=== PATIENT | female | born 1945 | race Caucasian/White ===

== ENCOUNTER 2018-12-10 13:55 | Outpatient (REF) | payer MEDICARE, OTHER, SELFPAY ==
--- NOTE | 2018-12-10 13:20 | PAPFT_PTH ---
PATIENT: Paz Silva LOC: [facility] U#:[id number] AGE/SX: 73/F ROOM: RE12/10/[address]: Candie Neal : 1945 BED: DIS: 12/10/2018 SPEC #: [id number] RECD: 12/10/18 18:01 STATUS: HOA REKari #: [id number] CASIE: 12/10/18 13:[address]: Candie Neal DEPT: [facility] Cytology RECD BY: Sofiya Young ENTERED: 12/10/18 18:01 SP TYPE: PAPFT OTHR DR: Jovanny Parra Tissues: 1 - CX/ENDOCX FOR PAP SMEARS Procedures: PAP THIN PREP/UVM Screening HPV DNA PROBE Comments: [id number]
== END 2018-12-10 14:15 ==
LOC: LBN 13:55
PROVIDERS: PCP Internal Medicine; Visit Provider Obstetrics & Gynecology Gynecology
DX: Z12.4 Encounter for screening for malignant neoplasm of cervix (principal); Z11.51 Encounter for screening for human papillomavirus (HPV)
CPT/HCPCS: 88142; 87624

== ENCOUNTER 2018-12-10 15:02 | Outpatient (REF) | payer MEDICARE, OTHER, SELFPAY | END 2018-12-10 15:22 | LOC: LBN 15:02 | PROVIDERS: PCP Internal Medicine; Visit Provider Obstetrics & Gynecology | DX: R10.2 Pelvic and perineal pain (principal) | CPT/HCPCS: 87086 ==

== ENCOUNTER 2018-12-22 11:04 | Outpatient (CLI) | payer MEDICARE, OTHER, SELFPAY ==
--- NOTE | 2018-12-22 12:09 | DI.US_ITS ---
SYMPTOMS/DIAGNOSIS: HEMATURIA, FLANK AND RIGHT LOWER QUADRANT PAIN, PELVIC AND PERINEAL PAIN, R10.2, ? KIDNEY STONE PELVIC ULTRASOUND: Transabdominal and transvaginal examination was performed. The patient is status post hysterectomy. The ovaries were not visualized transabdominally or transvaginally. No suspicious adnexal masses or free pelvic fluid is seen. The kidneys were visualized and show no evidence of obstruction. Note is made of a simple cyst on the left kidney measuring 2.1 x 2.3 x 3.2 cm. IMPRESSION: 1. Status post hysterectomy. 2. Nonvisualization of the ovaries during the examination.
--- NOTE | 2018-12-22 13:35 | DI.MAMMO_ITS ---
SYMPTOM/DIAGNOSIS: SCREENING, Z12.31 MAMMOGRAMS: Mammograms were interpreted according to the usual protocol including computer analysis with CAD system, tomosynthesis and C view imaging. Comparison is with the prior examinations. No suspicious masses or microcalcifications are seen. There is no definite evidence of malignancy. IMPRESSION: Negative mammogram. Routine screening is recommended. Category 1, breast density B. MQSA ASSESSMENT OF FINDINGS: Negative. Category 1. Patient will receive a letter notifying them of these results. BI-RADS category B. There are scattered areas of fibroglandular density.
== END 2018-12-22 11:24 ==
PROVIDERS: PCP Internal Medicine; Visit Provider Obstetrics & Gynecology
DX: Z12.31 Encounter for screening mammogram for malignant neoplasm of breast (principal); R10.2 Pelvic and perineal pain; R10.31 Right lower quadrant pain; R31.9 Hematuria, unspecified; N28.1 Cyst of kidney, acquired; Z90.710 Acquired absence of both cervix and uterus
CPT/HCPCS: 77063; 77067; 76830; 76856

== ENCOUNTER → 2019-04-05 09:42 | Outpatient (BNVA) | payer MEDICARE, OTHER, SELFPAY | PROVIDERS: PCP Internal Medicine; Visit Provider Student in an Organized Health Care Education/Training Program | DX: M17.12 Unilateral primary osteoarthritis, left knee (principal) | CPT/HCPCS: 20610; 99203; J1040 ==

== ENCOUNTER 2019-10-14 21:16 | Outpatient (REF) | payer MEDICARE, OTHER, SELFPAY ==
[2019-10-14 21:09] LABS: HCT 43.9 % (36.0-46.0); HGB 14.1 g/dL (12.0-15.5); Mean Corp. HGB Concentration 32.1 g/dL (32.0-36.0); Mean Corpuscular Hemoglobin 30.1 pg (27.0-33.0); Mean Corpuscular Volume 93.8 fL (80-95); Mean Platelet Volume 10.7 fL (8.0-11.0); Platelet Count 374 x1000/uL (130-400); RBC 4.68 m/cumm (4.00-5.20); RBC Distribution Width 14.8 % (11.7-14.6); White Blood Cell Count 6.09 k/cumm (4.4-10.8)
[2019-10-14 21:35] LABS: Hemoglobin A1C 5.5 % (3.8-5.6)
[2019-10-14 21:39] LABS: ALT 22 U/L (14-59); AST 15 U/L (15-37); Alkaline Phosphatase 108 U/L (46-116); Anion Gap 6.5 mmol/L (3-11); BUN 17 mg/dL (7-18); Bilirubin, Total 0.5 mg/dL (0.2-1.0); CO2 31.5 mmol/L (21.0-32.0); CREATININE 0.98 mg/dL (0.55-1.02); Calcium 9.4 mg/dL (8.5-10.1); Calculated LDL 121 mg/dL (<100); Chloride 104 mmol/L (98-107); Cholesterol 193 mg/dL (<200); Estimated GFR 55.79 (mL/min/1.73m2); Glucose 84 mg/dL (74-106); HDL Cholesterol 51 mg/dL (40-60); Potassium 4.1 mmol/L (3.5-5.1); Sodium 142 mmol/L (136-145); TSH 1.25 uIU/mL (0.36-3.74); Total Protein 7.1 g/dL (6.4-8.2); Triglyceride 107 mg/dL (<150)
== END 2019-10-14 21:36 ==
LOC: LBN 21:16
PROVIDERS: PCP Nurse Practitioner Family; Visit Provider Nurse Practitioner
DX: E78.5 Hyperlipidemia, unspecified (principal); E66.9 Obesity, unspecified; R79.89 Other specified abnormal findings of blood chemistry
CPT/HCPCS: 80053; 80061; 85027; 83036; 84439; 84443

== ENCOUNTER 2019-10-15 09:14 | Outpatient (CLI) | payer MEDICARE, OTHER, SELFPAY ==
--- NOTE | 2019-11-04 11:43 | W.ZIOMONITOR ---
Date of service: 11/04/19 Time of Service: 11:43 ZIO Patch Certified [employer] Engineer Note: This is a 2-week ZIO patch ordered for the indication of atrial fibrillation. The patient wore the patch for a total of 8 days. ?Patient was in normal sinus rhythm for the entirety of the recording with a heart rate ranging from 47 to 194 bpm. Average heart rate was 89 bpm. ?There were no episodes of ventricular tachycardia no pauses grade 3 seconds no evidence of high degree heart block. ?There were rare isolated (less than 1%) ventricular ectopic beats. ?Patient triggered events were associated with atrial fibrillation and ventricular ectopy.
--- NOTE | 2019-11-08 08:58 | W.HOLTRPT ---
Date of service: 11/08/19 Time of Service: 08:58 Holter Monitor Report Holter Monitor Note: Note: This is a 2-week ZIO patch ordered for the indication of atrial fibrillation. The patient wore the patch for a total of 8 days. ?Patient was in atrial fibrillation for the entirety of the recording with a heart rate ranging from 47 to 194 bpm. Average heart rate was 89 bpm. ?There were no episodes of ventricular tachycardia no pauses grade 3 seconds no evidence of high degree heart block. ?There were rare isolated (less than 1%) ventricular ectopic beats. ?Patient triggered events were associated with atrial fibrillation and ventricular ectopy.
--- NOTE | 2019-11-08 09:04 | ZIOP_ITS ---
Date of service: 11/08/19 Time of Service: 09:04 ZIO Patch [employer] Med[employer] Commissioner Note: Holter Monitor Note: Note: This is a 2-week ZIO patch ordered for the indication of atrial fibrillation. The patient wore the patch for a total of 8 days. ?Patient was in atrial fibrillation for the entirety of the recording with a heart rate ranging from 47 to 194 bpm. Average heart rate was 89 bpm. ?There were no episodes of ventricular tachycardia no pauses grade 3 seconds no evidence of high degree heart block. ?There were rare isolated (less than 1%) ventricular ectopic beats. ?Patient triggered events were associated with atrial fibrillation and ventricular ectopy.
== END 2019-10-15 09:34 ==
PROVIDERS: PCP Nurse Practitioner Family; Visit Provider Nurse Practitioner Family
DX: I48.91 Unspecified atrial fibrillation (principal)
CPT/HCPCS: 0296T

== ENCOUNTER 2019-11-08 08:00 | Outpatient (CLI) | payer MEDICARE, OTHER, SELFPAY | END 2019-11-08 08:20 | PROVIDERS: PCP Nurse Practitioner Family; Visit Provider Internal Medicine Cardiovascular Disease | DX: I48.91 Unspecified atrial fibrillation (principal); I49.3 Ventricular premature depolarization | CPT/HCPCS: 0298T ==

== ENCOUNTER 2019-12-08 07:22 | Outpatient (CLI) | payer MEDICARE, OTHER, SELFPAY ==
--- NOTE | 2019-12-08 12:30 | DI.US_ITS ---
APPROVED REPORT EXAM: Comprehensive 2D, Doppler, and color-flow Echocardiogram Patient Location: Out-Patient Manager Book: Janeth Aragon RDCS (AE) Indications: New onset A Fib Other Information Study Quality: Adequate Conclusion Normal left ventricular wall thickness and chamber size. Estimated ejection fraction is 45 to 50%. There is mild global hypokinesis The left atrium is moderately dilated. The right atrium is mildly dilated Normal right ventricular size and systolic function The aortic valve is mildly sclerotic without regurgitation or stenosis The mitral annulus is calcified. There is moderate mitral regurgitation There is mild to moderate tricuspid regurgitation with estimated right ventricular systolic pressure of 25 mmHg The pulmonic and tricuspid valves are structurally normal. There is mild pulmonic regurgitation Wall motion Left Ventricle The left ventricle is normal size. Left ventricular systolic function is mildly decreased. There is n ormal left ventricular wall thickness. There is global hypokinesis of the left ventricle. There is no ventricular septal defect visualized. LVEF is 45-50%. Right Ventricle The right ventricle is normal size. The right ventricular systolic function is normal. The RVSP is 24 .4mmHg. Atria Left atrium is moderately dilated. Right atrium is mildly dilated. The interatrial septum is intact w ith no evidence for an atrial septal defect. Aortic Valve Aortic valve is trileaflet. Mildly sclerotic There is no aortic valvular stenosis. No aortic regurgit ation is present. Mitral Valve Mild mitral annular calcification. No evidence of mitral valve stenosis. Moderate mitral regurgitatio n. Tricuspid Valve The tricuspid valve is normal in structure. There is no tricuspid valve stenosis. Mild tricuspid regu rgitation. Pulmonic Valve The pulmonary valve is normal in structure. There is no pulmonic valvular stenosis. Mild pulmonic reg urgitation. Great Vessels The aortic root is normal in size. The ascending aorta is normal in size. Aortic arch is normal in ca liber. IVC is normal in size and collapses >50% with inspiration. Pericardium There is no pericardial effusion. 2D Dimensions IVSD d PLAX 0.91 cm F: 0.6-1.0 LV Vol A2C d MOD 79.9 mL LVPW d PLAX 0.96 cm F: 0.6 - 1.0 LV Vol A4C d MOD 97.9 mL LVID d PLAX 5.05 cm F: 3.8 - 5.2 LA vol/ BSA A2C s A-L 42.9 mL/m2 LVDs 4.05 cm F: 2.2 - 3.5 LA vol/ BSA A4C s A-L 32.4 mL/m2 Ao Root d 2.48 cm F: 2.7 - 3.3 LA Vol/ BSA Biplane s A-L 37.8 mL/m2 RA Area A4C 19.13 cm2 LA Area A4C s MOD 18.62 cm2 RA Vol/ BSA A4C s A-L 31.0 mL/m2 LA Area A2C s MOD 21.68 cm2 Ao Asc Diam d 2.94 cm F: 2.3 - 3.1 LV EF A4C MOD 35.4 % LV EF Teichholz 39.4 % LV EF A2C MOD 35.1 % LVEF (George's) 32.30 % F: 54 - 74 LV EF Biplane MOD 32.3 % LV Volume 69.57 mL F: 46 - 106 SV 28.60 mL LV Volume Index 39.75 mL/m2 F: 29 - 61 SV Index 16.34 mL/m2 LV Vol Biplane MOD 88.5 mL FS 19.20 % M-Mode TAPSE 1.77 cm (M/F) >1.7 LV Diastology MV E' medial 0.081 (>0.07 m/s) MV E Vmax 1.05 (0.4-1.3 m/s) LV E/e MED 12.95 (<14) MV E' lateral 0.110 (>0.1 m/s) LV E/e LAT 9.50 (<14) MV E/E' medial 12.95 MV E/E' lateral 9.51 Aortic Valve LVOT Area 2.87 cm2 AoV Area Vmax 2.22 cm2 LVOT Vmax 1.06 m/s AoV Area/ BSA (Vmax) 1.27 cm2/m2 LVOT Mean Shawn. 0.80 m/s JASON Mean Shawn. 2.20 cm2 LVOT Peak Grad 4.5 mmHg JASON Mean Shawn. Index 1.26 cm2/m2 LVOT Mean Grad 2.7 mmHg LVOT VTI 0.244 m LVOT Diam s 1.90 cm AoV Vmax 1.37 m/s Velocity Ratio 0.77 AoV Mean Shawn. 1.04 m/s AoV Peak Grad 7.5 mmHg LVOT SV 70.22 mL AoV Mean Grad 4.6 mmHg AoV VTI 0.310 m AoV Area VTI 2.27 cm2 AoV Area/ BSA (VTI) 1.29 cm/m2 Mitral Valve MV DT 238 (160-240 msec) MR Vmax 4.77 m/s MV PHT 69 msec MR VTI 1.719 m MV Area PHT 3.19 cm2 MR Peak Grad 90.9 mmHg MV VTI 0.255 m MR Mean Grad 63.3 mmHg MV Area VTI 2.76 (4.0-6.0 cm2) MR PISA Radius 0.54 cm MR EROA 0.14 cm2 MR Aliasing Velocity 0.35 m/s MR PISA 1.86 cm2 Pulmonary Valve PV Vmax 0.86 (0.5-1.5 m/s) RVOT Peak Gr. 1.46 mmHg PV Peak Grad 2.9 mmHg RVOT Mean Gr. 1.00 mmHg PV Mean Grad 2.3 mmHg RVOT VTI 0.145 m PV VTI 0.220 m RVOT Vmax 0.61 m/s Tricuspid Valve TR Peak Grad 21.4 mmHg TR Vmax 2.31 m/s RA Pressure 3.00 mmHg RVSP (TR) 24.4 mmHg
== END 2019-12-08 07:42 ==
PROVIDERS: PCP Nurse Practitioner Family; Visit Provider Nurse Practitioner Family
DX: I08.1 Rheumatic disorders of both mitral and tricuspid valves (principal); I48.91 Unspecified atrial fibrillation
CPT/HCPCS: 93306

== ENCOUNTER → 2019-12-16 12:56 | Outpatient (BNVA) | payer MEDICARE, OTHER, SELFPAY | PROVIDERS: PCP Nurse Practitioner Family; Referring Provider Nurse Practitioner Family; Visit Provider Internal Medicine Cardiovascular Disease | DX: I48.91 Unspecified atrial fibrillation (principal); F03.90 Unspecified dementia, unspecified severity, without behavioral disturbance, psychotic disturbance, mood disturbance, and anxiety; I34.0 Nonrheumatic mitral (valve) insufficiency; G47.30 Sleep apnea, unspecified | CPT/HCPCS: 99204 ==

== ENCOUNTER → 2020-01-24 12:32 | Outpatient (BNVA) | payer MEDICARE, OTHER, SELFPAY | PROVIDERS: PCP Nurse Practitioner Family; Referring Provider Nurse Practitioner Family; Visit Provider Nurse Practitioner Adult Health | DX: F03.90 Unspecified dementia, unspecified severity, without behavioral disturbance, psychotic disturbance, mood disturbance, and anxiety (principal); I10 Essential (primary) hypertension | CPT/HCPCS: 99204; 99215 ==

== ENCOUNTER 2020-01-25 18:06 | Emergency (ER) | payer MEDICARE, OTHER, SELFPAY ==
--- NOTE | 2020-01-25 18:28 | W.ED.GENAD ---
Discharge Plan Disposition Patient Disposition: HOME Condition: Good Discharge Details Chief Complaint: FlankPain Clinical Impression: UTI (urinary tract infection) Primary Care Provider: Jeanne Chan ED Provider: Sharon Vee Home Meds and New Rx's Prescriptions: New sulfamethoxazole-trimethoprim [Bactrim DS] 800-160 mg tablet 1 tab PO BID Qty: 4 RF: 0 Continued potassium chloride 10 mEq tablet extended release 10 meq PO DAILY RF: 0 rivaroxaban 20 mg tablet 20 mg PO QPM Qty: 90 RF: 4 furosemide 20 mg tablet 20 mg PO DAILY Qty: 90 RF: 3 Discharge Instructions Instructions: Sulfamethoxazole/Trimethoprim (By mouth), Urinary Tract Infection in Women (ED) Additional Instructions: Encourage water intake. May use Tylenol as needed for discomfort. Please take antibiotics for urinary tract infection as prescribed. Even if symptoms improve, please take the entire course. I would like you to follow-up with your primary care, please call tomorrow to make follow-up appointment. If you develop back pain, fevers or other new/worsening symptoms please seek care urgently once again. Referrals: Jeanne Chan, YEIMI [Primary Care Provider] - Discharge Data Discharge Date/Time-TO BE ENTERED AT DEPARTURE: 01/25/20 21:10 Medical Decision Making Patient is a pleasant 74-year-old female with history of dementia presents today with chief complaint of left flank pain. Exam actually reveals that this reported flank pain seems to be more in the left lower abdomen. She does report however that this can wrap around to the side. She does not have any CVA tenderness. She is her home care provider reports increased weakness and urgency although patient denies any dysuria. Does not note any hematuria. No vaginal discharge. Denies any change in her bowel habits. No change in her appetite. Denies any fevers or chills. No recent travel. No known sick contacts. Patient has a history of dementia. joint machine operator is present. She reports the patient's primary concern over the past few days has been discomfort with urination and increased frequency. This is slightly different with the patient was initially talking with the left-sided abdominal pain. I do feel that CT would be appropriate for evaluation potential diverticulitis given location of pain. Alternatively, the patient may have UTI. She has no CVA tenderness, I do not see evidence to suggest pyelonephritis. She does not appear to be systemically ill. Labs reviewed, no leukocytosis, GFR WNL. Lipase WNL. UA significant for small leukocyte esterase, moderate epithelial cells, few bacteria. FINDINGS: Liver: Normal. No mass. Gallbladder and bile ducts: Gallbladder contracted or prior cholecystectomy. Minimal intra and extrahepatic biliary ductal dilatation. Pancreas: Normal. No ductal dilation. Spleen: Normal. No splenomegaly. Adrenals: Normal. No mass. Kidneys and ureters: Simple cysts left kidney, largest measuring 2.7 cm. Too small to characterize hypoenhancing lesion lower pole right kidney. No hydronephrosis. Stomach and bowel: Minimal gastric distension. No colonic dilatation. Dilatation of proximal duodenum. Duodenum more distally compressed passing between IVC and superior mesenteric artery. Fat stranding about proximal duodenum. Scattered colonic diverticula. Appendix: Normal appendix. Intraperitoneal space: No free intraperitoneal gas. No ascites Vasculature: There are coronary artery calcifications. Left retroaortic renal vein. Lymph nodes: No adenopathy. Bladder: Unremarkable as visualized. Reproductive: Prior hysterectomy. Bones/joints: Mild anterior subluxation of L5 with respect S1. No acute fracture. Soft tissues: Unremarkable. IMPRESSION: 1. Gastric and proximal duodenal dilatation at least in part due to compression of more distal duodenum between IVC in superior mesenteric artery. 2. Duodenitis. 3. Intra-and extrahepatic biliary ductal dilatation, most likely due to prior cholecystectomy and/or instrumentation of the biliary tract. Other etiologies not excluded. Correlation with serum bilirubin warranted. 4. Colonic diverticula. 5. Coronary artery disease. Discussed these findigns with the ptaient and her home help aide. Reexamine the patient's abdomen she does not have any discomfort over the area in question of the CT. She also has not been having any change in her bowel habits suggest infectious diarrhea. However, given the patient's home care providers reported increased frequency and urgency along with the abdominal discomfort, and concern that she has a UTI. She did have some mild leukocyte esterase and few bacteria in her urine. Plan to treat with Bactrim. Patient does have allergy to penicillins and her kidney function is within normal limits, I do feel that she will likely tolerate this well. She was given strict return precautions. Advise follow-up with primary care. All other questions and concerns were addressed and they are in agreement this plan. HPI General Mode of arrival: ambulatory. Date/Time Provider Initiated Documentation: 01/25/20 18:28. Limitations to Documentation: altered mental status (hx of dementia). Information obtained by: patient, family (home help aide) and RN notes reviewed. HPI Narrative: Patient is a pleasant 74-year-old female past medical history of dementia, presenting today, brought in by her home care provider, with chief complaint of left flank pain. States his left flank pain began approximately 3 days ago. Denies any improving or worsening factors. She denies any trauma. Is endorsing left-sided abdominal pain as well. No nausea vomiting. No change in appetite. Home care provider reports that the flank pain was not primarily what brought her in but rather dysuria. States the patient has had increased frequency. Denies any fevers or chills. No change in bowel habits. Related Data Home Medications Medication Instructions Recorded Confirmed rivaroxaban 20 mg tablet 20 mg PO QPM #90 tab 10/19/19 01/24/20 furosemide 20 mg tablet 20 mg PO DAILY #90 tab 12/16/19 01/24/20 potassium chloride 10 mEq 10 meq PO DAILY 01/24/20 01/24/20 tablet,extended release sulfamethoxazole-trimethoprim 1 tab PO BID #4 tab 01/25/20 [Bactrim DS] Previous Rx's Medication Instructions Recorded rivaroxaban 20 mg tablet 20 mg PO QPM #90 tab 10/19/19 furosemide 20 mg tablet 20 mg PO DAILY #90 tab 12/16/19 sulfamethoxazole-trimethoprim 1 tab PO BID #4 tab 01/25/20 [Bactrim DS] Allergies Allergy/AdvReac Type Severity Reaction Status Date / Time Penicillins Allergy Severe Hives Verified 01/24/20 12:49 diphtheria,pertussis AdvReac Other (See Verified 01/24/20 12:49 (acellular),te Comment) [From [employer] Tdap] Review of Systems Narrative: Patient did seem quite clear on many of her symptoms although her home care provider was able to augment when needed. I do feel that history was thorough and complete despite the patient's history of dementia Constitutional Constitutional: Reports as per HPI, Denies chills, Denies fatigue, Denies fever(s) and Denies headache(s) ENT Ears, Nose, Mouth, and Throat: Denies headache(s) Cardiovascular Cardiovascular: Reports as per HPI, Denies chest pain and Denies dyspnea Respiratory Respiratory: Reports as per HPI, Denies cough and Denies dyspnea Gastrointestinal Gastrointestinal: Reports as per HPI Genitourinary Genitourinary: Reports as per HPI Musculoskeletal Musculoskeletal: Reports as per HPI, Reports back pain, Denies muscle cramps, Denies muscle weakness and Denies radiating pain into limb Integumentary/Breasts Skin/Breast: Reports as per HPI and Denies rash Neurologic Neurologic: Reports as per HPI and Denies headache(s) Endocrine Endocrine: Denies fatigue [facility] Medical History Atrial fibrillation (Chronic) Dementia (Suspected) Essential hypertension (Resolved) GERD (gastroesophageal reflux disease) (Chronic) Helicobacter pylori gastritis (Resolved) Hyperlipidemia (Chronic) Left knee DJD (Chronic) Injection: 04/05/2019 Obstructive sleep apnea (Chronic) PSG 02/18/16 Tubular adenoma of colon (Resolved) Noted on colonoscopy in 2005, repeat in 2010 normal Surgical History H/O medial meniscus repair of right knee (Acute 03/31/12) H/O total hysterectomy (Acute) For heavy menstruation History of carpal tunnel surgery of right wrist (Acute) History of esophagogastroduodenoscopy (EGD) (Chronic) S/P arthroscopy of left shoulder (Acute) S/P cholecystectomy (Acute) S/P colonoscopy (Acute 10/29/10) S/P excision of lipoma (Acute 07/15/07) Left chest S/P tonsillectomy (Acute) Family History Mother , age 84 of unknown cause Alzheimer's disease Father , age 76 of cirrhosis Alcohol abuse Heart disease Cirrhosis of liver Sister Depression Bipolar disorder Brother Alcohol abuse Depression Son Alcohol abuse Depression Daughter Alcohol abuse Hypertension Substance abuse Depression Bipolar disorder Maternal Grandfather , age 88 Heart disease Maternal Grandmother , age 80 No problems noted. Paternal Grandfather , at 80 Hypertension Paternal Grandmother , age 75 Depression Heart disease Social History Smoking/Tobacco Use Status: Former Tobacco Use Quit Date: 05/26/94 Tobacco: How many years used: 15 Second Hand Exposure: No Alcohol Intake: never Drug use: Never Substance use type: does not use Caregiver/Support person: No Household members: none Housing: house Number of Children: 2 Communication Needs: Corrective Lenses Do you need help understanding health information?: Often Pets and animals: Yes Pets and animals: cat(s) and dog(s) Sexually active: No Current gender identity: female What is your relationship status?: How often do you talk on the phone with friends or family?: three or more times per week How often do you get together with friends or relatives?: three or more times per week How often do you attend advent or latter-day services?: decline to answer Do you belong to any clubs or organized social groups?: no Panel score (0-1 are the most socially isolated patients): 1 What type of physical activity do you participate in: walking Duration: 30-45 minutes/day Frequency: 5-6 times per week Suri/Cheondoism: Orthodoxy Special suri needs: No Seatbelt use: always Do you feel safe at home: Yes Do you feel safe in your relationship?: Yes Female Reproductive History Menstrual Menopause type: surgical History History 2 Para 2 Hx # Term Pregnancies 2 Multiple births Hx # Pregnancies Ectopic pregnancies AB induced Hx Number of Living Children 2 AB spontaneous Exam Const General: cooperative, healthy appearing, comfortable, no acute distress and well developed Nutritional Appearance: average body habitus and well nourished Orientation: alert and awake HENMT Head: normal to inspection Mouth: moist mucous membranes Resp Effort & Inspection: normal respiratory effort, able to speak in complete sentences and no respiratory distress Auscultation: clear to auscultation bilaterally, no rales, no rhonchi and no wheezes Cardio Rate: regular rate Rhythm: regular rhythm Heart Sounds: S1 normal and S2 normal GI Inspection: normal to inspection, no edema and non-distended Palpation: soft, no hepatosplenomegaly, not firm, no guarding, no hernias, no masses, no pulsatile masses, not rigid and tender in the LLQ; not at McBurney's point, Corbett's sign negative, obturator sign negative, psoas sign negative and with no rebound tenderness Percussion: normal to percussion Auscultation: normal bowel sounds Back/Spine/Pelvis Back: no CVA tenderness Skin General skin exam: no rashes or lesions noted Trauma: no lacerations or abrasions Neuro General: patient alert and patient awake Cognition: normal cognition Speech: speech normal Gait: normal gait Psych Appearance: grossly normal and well kempt Mental Status: mental status grossly normal Speech and Movement: speech and movement normal
[2020-01-25 18:37] VITALS: BP 120/50; PULSE 85; RESP 20; TEMP 36.5; O2SAT 98
--- NOTE | 2020-01-25 18:45 | DI.CT_ITS ---
EXAM: CT ABDOMEN PELVIS W CLINICAL HISTORY: LLQ pain TECHNIQUE: Imaging Protocol: Axial computed tomography images with coronal and sagittal reformatted images were created and reviewed CONTRAST MATERIAL: Intravenous: Omnipaque 350 Contrast volume:100 mL Oral: No COMPARISON: No exams were available for comparison FINDINGS: ABDOMEN: Lung Bases: Moderate coronary artery calcification. Liver: Normal density. No measurable mass. 19.1 cm in length. Portal, Superior Mesenteric, and Splenic Veins: Unremarkable. Gallbladder and Biliary Tract: Gallbladder not visualized. Dilatation of the bile ducts likely secon arjun to the post cholecystectomy state.. Pancreas: Normal density, no abnormal calcifications or inflammatory process. Spleen: Normal. Calcified granulomas. Adrenals: No masses seen. Kidneys: Normal size, contour and axis. No radiodense stones or obstructive uropathy. Bilateral renal cysts. Abdominal Aorta: Abdominal portion non-dilated. Atherosclerosis. IVC: Note is made of a retroaortic left renal vein. Bowel: No obstruction. Mild thickening of the wall of the proximal small bowel suspicious for an inf ectious or inflammatory enteritis. Distended stomach and proximal duodenum.. Appendix is unremarkab le. Colonic diverticulosis but no evidence of acute diverticulitis. Peritoneal Cavity: No ascites, collection or mesenteric inflammatory response. Lymph Nodes: Within normal limits. Bones: Degenerative changes in the spine. Soft Tissues: Unremarkable. PELVIS: Bladder: Symmetric distention, no gross wall thickening. Reproductive Organs: Status post hysterectomy. Lymph Nodes: Within normal limits. Bones: Degenerative changes seen in the spine. IMPRESSION: 1. Mild thickening of the wall of the proximal small bowel suspicious for an infectious or inflammato ry enteritis. 2. Distended stomach and proximal duodenum which may be due to compression between the superior mesen teric vessels in the IVC. 3. Intra and extrahepatic biliary ductal dilatation likely secondary to prior cholecystectomy. RADIATION DOSE DELIVERED: 1,096.69mGy.cm Total DLP DATA REPOSITORY: All CT scans at this facility are submitted to the National Radiology Data Registry (NRDR) Dose Index Registry (DIR) with the [employer] (ACR). RADIATION OPTIMIZATION: All CT scans at this facility use at least one of these dose optimization te chniques: automated exposure control; mA and/or kV adjustment per patient size (includes targeted exa ms where dose is matched to clinical indication); or iterative reconstruction.
[2020-01-25 18:48] LABS: Bilirubin Negative (Negative); Blood Negative (Negative); Clarity Clear (Clear); Glucose Negative (Negative); Ketones Negative (Negative); Leukocyte Esterase Small (Negative); Nitrite Negative (Negative); Specific Gravity 1.025 (1.005-1.025); Urobilinogen 0.2 EU/dL (Up TO 0.2); pH 6.5 (5-8)
[2020-01-25 19:02] LABS: Bacteria Few HPF (Negative); C & S Indicated? Yes; Crystals Negative HPF (Negative); Epithelial Cells Moderate HPF (Negative); Mucus Negative (Negative); RBC 0-2 HPF (0-2)
[2020-01-25 19:17] LABS: Abs Immature Grans 0.02 10^3/uL (0.0-0.06); Absolute Basophil Count 0.06 10^3/uL (0.0-0.2); Absolute Eosinophil Count 0.18 10^3/uL (0.0-0.7); Absolute Lymphocyte Count 2.38 10^3/uL (1.2-3.4); Absolute Neutrophil Count 3.64 10^3/uL (1.2-6.7); Basophils % 0.9; Eosinophils % 2.7; HCT 42.6 % (36.0-46.0); HGB 13.6 g/dL (11.2-15.7); Immature Grans % 0.3; Lymphocytes % 35.1; MCH 30.2 pg (27.0-33.0); MCHC 31.9 % (32.0-36.0); MCV 94.5 fL (80-95); MPV 10.2 fL (8.0-11.0); Monocytes % 7.4; Neutrophils % 53.6; Nucleated RBC 0 %; Platelet Count 322 10^3/uL (130-400); RBC 4.51 10^6/uL (3.93-5.22); RDW 14.1 % (11.7-14.6); RDW-SD 49.1 fL; WBC 6.78 10^3/uL (4.4-10.8)
[2020-01-25] MEDS: Lactated Ringers 1,000 ML 500 ML IV (19:17)
[2020-01-25] MEDS: ACETAMINOPHEN 1,000 MG/100 ML BTL 400 MG IVPB (19:20)
[2020-01-25 19:30] VITALS: BP 110/65; PULSE 83; RESP 16; O2SAT 100
[2020-01-25 19:31] LABS: ALT 17 U/L (14-59); AST 14 U/L (15-37); Albumin 3.4 g/dL (3.4-5.0); Alkaline Phosphatase 82 U/L (46-116); BUN 18 mg/dL (7-18); Bilirubin, Total 0.3 mg/dL (0.2-1.0); CREATININE 0.85 mg/dL (0.55-1.02); Calcium 8.6 mg/dL (8.5-10.1); Chloride 109 mmol/L (98-107); Glucose 95 mg/dL (74-106); Lipase 147 U/L (73-393); Potassium 3.5 mmol/L (3.5-5.1); Sodium 146 mmol/L (136-145); Total Protein 6.4 g/dL (6.4-8.2)
[2020-01-25] MEDS: Omnipaque 350 MG/ML 100 ML BTL IJ (19:41)
[2020-01-25] MEDS: Normal Saline - Diluent 50 ML VIAL IV (19:43)
[2020-01-25] MEDS: Normal Saline Flush 10 ML SYR IVP (19:46)
[2020-01-25 20:00] VITALS: BP 113/75; PULSE 81; RESP 16; O2SAT 100
--- NOTE | 2020-01-25 20:17 | DI.VRAD_ITS ---
PROCEDURE INFORMATION: Exam: CT Abdomen And Pelvis With Contrast Exam date and time: 01/25/2020 6:53 PM Age: 74 years old Clinical indication: Abdominal pain; Other: Llq pain; Prior surgery; Surgery date: 6+ months; Surgery type: Hysterectomy TECHNIQUE: Imaging protocol: Computed tomography of the abdomen and pelvis with intravenous contrast. Radiation optimization: All CT scans at this facility use at least one of these dose optimization techniques: automated exposure control; mA and/or kV adjustment per patient size (includes targeted exams where dose is matched to clinical indication); or iterative reconstruction. Contrast material: OMNIPAQUE 350; Contrast volume: 100 ml; Contrast route: INTRAVENOUS (IV); COMPARISON: US PELVIS TRANSVAGINAL 12/22/2018 12:29 PM FINDINGS: Liver: Normal. No mass. Gallbladder and bile ducts: Gallbladder contracted or prior cholecystectomy. Minimal intra and extrahepatic biliary ductal dilatation. Pancreas: Normal. No ductal dilation. Spleen: Normal. No splenomegaly. Adrenals: Normal. No mass. Kidneys and ureters: Simple cysts left kidney, largest measuring 2.7 cm. Too small to characterize hypoenhancing lesion lower pole right kidney. No hydronephrosis. Stomach and bowel: Minimal gastric distension. No colonic dilatation. Dilatation of proximal duodenum. Duodenum more distally compressed passing between IVC and superior mesenteric artery. Fat stranding about proximal duodenum. Scattered colonic diverticula. Appendix: Normal appendix. Intraperitoneal space: No free intraperitoneal gas. No ascites Vasculature: There are coronary artery calcifications. Left retroaortic renal vein. Lymph nodes: No adenopathy. Bladder: Unremarkable as visualized. Reproductive: Prior hysterectomy. Bones/joints: Mild anterior subluxation of L5 with respect S1. No acute fracture. Soft tissues: Unremarkable. IMPRESSION: 1. Gastric and proximal duodenal dilatation at least in part due to compression of more distal duodenum between IVC in superior mesenteric artery. 2. Duodenitis. 3. Intra-and extrahepatic biliary ductal dilatation, most likely due to prior cholecystectomy and/or instrumentation of the biliary tract. Other etiologies not excluded. Correlation with serum bilirubin warranted. 4. Colonic diverticula. 5. Coronary artery disease. Dictated and Authenticated by: Kieran Carpenter MD. Ordering:LUBA Herrera MD
[2020-01-25 21:07] VITALS: BP 114/63; PULSE 83; RESP 16; O2SAT 100
[2020-01-25] MEDS: Sulfameth/Trimeth DS TAB 2 TAB PO (21:07)
== END 2020-01-25 21:10 | disposition home or self-care (01) ==
PROVIDERS: Nurse Practitioner Family; Emergency Provider Physician Assistant; PCP Nurse Practitioner Family
DX: N39.0 Urinary tract infection, site not specified (principal); R10.32 Left lower quadrant pain; F03.90 Unspecified dementia, unspecified severity, without behavioral disturbance, psychotic disturbance, mood disturbance, and anxiety; I10 Essential (primary) hypertension
CPT/HCPCS: 36415; 80053; 83690; 96361; 96374; 99285; 74177; 81003; 81015; 85025; 87086; 99284; J0131; J3490

== ENCOUNTER 2020-02-14 17:52 | Emergency (ER) | payer MEDICARE, OTHER, SELFPAY ==
[2020-02-14 18:00] VITALS: BP 136/91; PULSE 89; RESP 18; TEMP 36.6; O2SAT 96
[2020-02-14 18:35] LABS: Abs Immature Grans 0.02 10^3/uL (0.0-0.06); Absolute Basophil Count 0.05 10^3/uL (0.0-0.2); Absolute Eosinophil Count 0.23 10^3/uL (0.0-0.7); Absolute Lymphocyte Count 1.69 10^3/uL (1.2-3.4); Absolute Monocyte Count 0.52 10^3/uL (0.1-0.8); Absolute Neutrophil Count 4.27 10^3/uL (1.2-6.7); Basophils % 0.7; Eosinophils % 3.4; HCT 42.2 % (36.0-46.0); HGB 13.6 g/dL (11.2-15.7); Immature Grans % 0.3; Lymphocytes % 24.9; MCH 30.1 pg (27.0-33.0); MCHC 32.2 % (32.0-36.0); MCV 93.4 fL (80-95); Monocytes % 7.7; Nucleated RBC 0 %; Platelet Count 323 10^3/uL (130-400); RBC 4.52 10^6/uL (3.93-5.22); RDW-SD 47.9 fL; WBC 6.78 10^3/uL (4.4-10.8)
[2020-02-14 18:41] LABS: Anion Gap 8.5 mmol/L (3-11); BUN 21 mg/dL (7-18); CO2 25.5 mmol/L (21.0-32.0); CREATININE 0.82 mg/dL (0.55-1.02); Calcium 8.5 mg/dL (8.5-10.1); Chloride 108 mmol/L (98-107); Glucose 120 mg/dL (74-106); Potassium 3.5 mmol/L (3.5-5.1); Sodium 142 mmol/L (136-145)
--- NOTE | 2020-02-14 18:41 | ED.GENADUL_ITS ---
Discharge Plan Disposition Patient Disposition: HOME Condition: Good Discharge Details Clinical Impression: Obstipation Primary Care Provider: Jeanne Chan ED Provider: Asya Rock Home Meds and New Rx's Prescriptions: Continued potassium chloride 10 mEq tablet extended release 10 meq PO DAILY RF: 0 rivaroxaban 20 mg tablet 20 mg PO QPM Qty: 90 RF: 4 furosemide 20 mg tablet 20 mg PO DAILY Qty: 90 RF: 3 Discharge Instructions Instructions: Constipation (ED) Additional Instructions: Drink at least 6 to 8 glasses of water daily to stay well-hydrated Can use [id number] stool softeners and laxatives if needed for constipation Continue use Tylenol and/or ibuprofen See your primary care provider for further evaluation Referrals: Jeanne Chan, [employer] [Primary Care Provider] - Medical Decision Making Patient presents with a recurrence of her left-sided abdominal pain with radiation into her groin after completing a course of Bactrim for urinary tract infection a few weeks ago. She denies fever. Will obtain basic metabolic panel CBC and UTI. Differentials include recurrent UTI renal colic, muscle strain,. Urine shows no evidence of infection there is no blood. Her basic metabolic panel and CBC are unremarkable. Will repeat CT as previous CT did show some nonspecific inflammatory changes. This has resolved on today's repeat exam. On discharge patient complains of left thigh pain which she says she has had for 2 weeks. Her pain is controlled with oral Tylenol. Her last dose was at 4 PM she is requesting a dose at discharge she is a administered thousand milligrams of p.o. Tylenol and is able to easily ambulate out of the department at discharge Medical Records Medical records reviewed: Yes I reviewed the patient's medical records. Lab Data Lab results reviewed: Yes I reviewed the patient's lab results. Lab results narrative: Laboratory Results - last 24 hr 02/14/20 02/14/20 02/14/20 18:27 18:27 18:35 WBC 6.78 RBC 4.52 Hgb 13.6 Hct 42.2 MCV 93.4 MCH 30.1 MCHC 32.2 RDW 14.0 Plt Count 323 MPV 10.0 Immature Gran % 0.3 Neutrophils % 63.0 Lymphocytes % 24.9 Monocytes % 7.7 Eosinophils % 3.4 Basophils % 0.7 Nucleated RBC % 0 Absolute Neutrophils 4.27 Absolute Lymphocytes 1.69 Absolute Monocytes 0.52 Absolute Eosinophils 0.23 Absolute Basophils 0.05 Sodium 142 Potassium 3.5 Chloride 108 H Carbon Dioxide 25.5 Anion Gap 8.5 BUN 21 H Creatinine 0.82 Estimated GFR/1.73 m2 >= 60.00 Glucose 120 H Calcium 8.5 Urine Color Yellow Urine Clarity Clear Urine pH 5.5 Ur Specific [place] >= 1.030 H Urine Protein Negative Urine Ketones Trace H Urine Blood Negative Urine Nitrite Negative Urine Bilirubin Negative Urine Urobilinogen 0.2 Ur Leukocyte Esterase Negative Urine Glucose Negative HPI General Date/Time Provider Initiated Documentation: 02/14/20 17:55 . Information obtained by: patient, family (janitor caretaker) and old records reviewed . HPI Narrative: Patient presents with caregiver with complaints of left-sided abdominal/groin pain that wraps around to her flank area. She states she had similar symptoms a few weeks back and was treated for a urinary tract infection she says she completed her course of antibiotics as prescribed but a few days later her symptoms returned. She denies any fevers nausea she is eating and drinking. She denies any loose stools. She denies any dysuria or frequency. Related Data Home Medications Medication Instructions Recorded Confirmed rivaroxaban 20 mg tablet 20 mg PO QPM #90 tab 10/19/19 02/14/20 furosemide 20 mg tablet 20 mg PO DAILY #90 tab 12/16/19 02/14/20 potassium chloride 10 mEq 10 meq PO DAILY 01/24/20 02/14/20 tablet,extended release Previous Rx's Medication Instructions Recorded rivaroxaban 20 mg tablet 20 mg PO QPM #90 tab 10/19/19 furosemide 20 mg tablet 20 mg PO DAILY #90 tab 12/16/19 Allergies Allergy/AdvReac Type Severity Reaction Status Date / Time Penicillins Allergy Severe Hives Verified 02/14/20 18:04 diphtheria,pertussis AdvReac Other (See Verified 02/14/20 18:04 (acellular),te Comment) [From Boostrix Tdap] General Stated Complaint: Urinary LYNDON: 3 Review of Systems Constitutional Constitutional: Denies fever(s) Cardiovascular Cardiovascular: Denies chest pain Respiratory Respiratory: Denies cough Gastrointestinal Gastrointestinal: Reports abdominal pain, Denies melena, Denies change in bowel habits, Denies change in stool character, Denies diarrhea, Denies nausea and Denies vomiting Genitourinary Genitourinary: Denies urinary incontinence and Denies urinary hesitancy Musculoskeletal Musculoskeletal: Denies arthralgias and Denies joint swelling Integumentary/Breasts Skin/Breast: Denies rash [facility] Medical History (Updated 02/14/20 @ 21:56 by Asya Rock NP) Atrial fibrillation Dementia Essential hypertension GERD (gastroesophageal reflux disease) Helicobacter pylori gastritis Hyperlipidemia Left knee DJD Injection: 04/05/2019 Obstructive sleep apnea PSG 02/18/16 Tubular adenoma of colon Noted on colonoscopy in 2005, repeat in 2010 normal Surgical History H/O medial meniscus repair of right knee (03/31/12) H/O total hysterectomy For heavy menstruation History of carpal tunnel surgery of right wrist History of esophagogastroduodenoscopy (EGD) S/P arthroscopy of left shoulder S/P cholecystectomy S/P colonoscopy (10/29/10) S/P excision of lipoma (07/15/07) Left chest S/P tonsillectomy Family History Mother , age 84 of unknown cause Alzheimer's disease Father , age 76 of cirrhosis Alcohol abuse Heart disease Cirrhosis of liver Sister Depression Bipolar disorder Brother Alcohol abuse Depression Son Alcohol abuse Depression Daughter Alcohol abuse Hypertension Substance abuse Depression Bipolar disorder Maternal Grandfather , age 88 Heart disease Maternal Grandmother , age 80 No problems noted. Paternal Grandfather , at 80 Hypertension Paternal Grandmother , age 75 Depression Heart disease Social History Smoking/Tobacco Use Status: Former Tobacco Use Quit Date: 05/26/94 Tobacco: How many years used: 15 Second Hand Exposure: No Alcohol Intake: never Drug use: Never Substance use type: does not use Caregiver/Support person: No Household members: none Housing: house Number of Children: 2 Communication Needs: Corrective Lenses Do you need help understanding health information?: Often Pets and animals: Yes Pets and animals: cat(s) and dog(s) Sexually active: No Current gender identity: female What is your relationship status?: How often do you talk on the phone with friends or family?: three or more times per week How often do you get together with friends or relatives?: three or more times per week How often do you attend episcopalian or alevism services?: decline to answer Do you belong to any clubs or organized social groups?: no Panel score (0-1 are the most socially isolated patients): 1 What type of physical activity do you participate in: walking Duration: 30-45 minutes/day Frequency: 5-6 times per week Suri/Church: [employer] Special suri needs: No Seatbelt use: always Do you feel safe at home: Yes Do you feel safe in your relationship?: Yes Female Reproductive History Menstrual Menopause type: surgical History History 2 Para 2 Hx # Term Pregnancies 2 Multiple births Hx # Pregnancies Ectopic pregnancies AB induced Hx Number of Living Children 2 AB spontaneous Exam Const General: cooperative, healthy appearing, comfortable and no acute distress Nutritional Appearance: overweight Orientation: alert, awake, oriented to person, oriented to place and oriented to time (Able to provide some history but with signs of cognitive impairment caregiv) HENMT Head: normal to inspection, normocephalic and atraumatic Mouth: oral mucosae normal Resp Effort & Inspection: normal respiratory effort Cardio Rate: regular rate Rhythm: regular rhythm GI Inspection: normal to inspection, distended and obesity Palpation: soft, not firm, no guarding, no masses, not rigid and nontender Back/Spine/Pelvis Back: no CVA tenderness Thoracic/Lumbar Spine: thoracic and lumbar spine normal to inspection Skin General skin exam: no rashes or lesions noted Extrem General: normal to inspection, full ROM and pedal edema (trace) bilaterally Course Vital Signs Vital signs: Vital Signs Temperature 36.6 C 02/14/20 18:00 Pulse 89 02/14/20 18:00 Respiratory Rate 18 02/14/20 18:00 Blood Pressure 136/91 H 02/14/20 18:00 Pulse Oximetry 96 02/14/20 18:00 Temperature 36.6 C 02/14/20 18:00 Temperature Source Oral 02/14/20 18:00 Pulse 89 02/14/20 18:00 Respiratory Rate 18 02/14/20 18:00 Respiratory Effort Non-Labored 02/14/20 18:05 Blood Pressure 136/91 H 02/14/20 18:00 Blood Pressure Position Sitting 02/14/20 18:00 Pulse Oximetry 96 02/14/20 18:00 Oxygen Delivery Method Room Air 02/14/20 18:00 Oxygen Flow Rate 0 02/14/20 18:00 Pain Level 2 02/14/20 18:00 Lab/Test Results Lab/Test Results: Laboratory Tests Range/Units 02/14/20 18:27 WBC (4.4-10.8) 10^3/uL 6.78 RBC (3.93-5.22) 10^6/uL 4.52 Hgb (11.2-15.7) g/dL 13.6 Hct (36.0-46.0) % 42.2 MCV (80-95) fL 93.4 MCH (27.0-33.0) pg 30.1 MCHC (32.0-36.0) % 32.2 RDW (11.7-14.6) % 14.0 Plt Count (130-400) 10^3/uL 323 MPV (8.0-11.0) fL 10.0 Immature Gran % 0.3 Neutrophils % 63.0 Lymphocytes % 24.9 Monocytes % 7.7 Eosinophils % 3.4 Basophils % 0.7 Nucleated RBC % % 0 Absolute Neutrophils (1.2-6.7) 10^3/uL 4.27 Absolute Lymphocytes (1.2-3.4) 10^3/uL 1.69 Absolute Monocytes (0.1-0.8) 10^3/uL 0.52 Absolute Eosinophils (0.0-0.7) 10^3/uL 0.23 Absolute Basophils (0.0-0.2) 10^3/uL 0.05
[2020-02-14 18:45] LABS: Bilirubin Negative (Negative); Blood Negative (Negative); Clarity Clear (Clear); Glucose Negative (Negative); Ketones Trace mg/dL (Negative); Leukocyte Esterase Negative (Negative); Nitrite Negative (Negative); Specific Gravity >= 1.030 (1.005-1.025); Urobilinogen 0.2 EU/dL (Up TO 0.2); pH 5.5 (5-8)
--- NOTE | 2020-02-14 19:30 | DI.CT_ITS ---
EXAM: CT ABDOMEN PELVIS W CLINICAL HISTORY: pain, left lower quad TECHNIQUE: Imaging Protocol: Axial computed tomography images with coronal and sagittal reformatted images were created and reviewed CONTRAST MATERIAL: Intravenous: Omnipaque 350 Contrast volume:100 mL Oral: Yes COMPARISON: CT CT ABDOMEN PELVIS W from 01/25/2020 FINDINGS: ABDOMEN: Lung Bases: Normal where visualized. Liver: Normal density. No measurable mass. There is an area of decreased attenuation within the liver adjacent to the falciform ligament. Its appearance and location is suggestive of fatty infiltration . Portal, Superior Mesenteric, and Splenic Veins: Unremarkable. Gallbladder and Biliary Tract: Gallbladder is absent. No biliary ductal dilatation. Pancreas: Normal density, no abnormal calcifications or inflammatory process. Spleen: Normal. Adrenals: Stable nodularity of the left adrenal gland. Right adrenal gland is unremarkable. Kidneys: Normal size, contour and axis. No radiodense stones or obstructive uropathy. Bilateral renal cysts. Note is made of a retroaortic left renal vein. Abdominal Aorta: Abdominal portion non-dilated. Atherosclerosis. Bowel: No obstruction or bowel wall thickening. Appendix is unremarkable. Colonic diverticulosis but no evidence of acute diverticulitis. There is a question of pneumatosis in the cecum. No portal brendan ous air is identified. Peritoneal Cavity: No ascites, collection or mesenteric inflammatory response. Lymph Nodes: Within normal limits. Bones: L5 spondylolysis on the right. No spondylolisthesis. Scattered sclerotic foci are seen in th e bones. Degenerative changes are seen in the spine. Soft Tissues: Unremarkable. PELVIS: Bladder: Symmetric distention, no gross wall thickening. Reproductive Organs: The uterus is not visualized. Lymph Nodes: Within normal limits. Bones: Please see the above discussion. IMPRESSION: 1. Area of decreased attenuation within the liver adjacent to the falciform ligament. Its appearance and location is most suggestive of focal fatty infiltration. MRI may be considered to exclude a mas s. 2. Question of pneumatosis in the cecum. No portal venous air is identified. 3. Several sclerotic foci seen within the bones. These may represent bone islands metastatic disease cannot be excluded. Bone scan may be considered for further evaluation. RADIATION DOSE DELIVERED: 1,046.99mGy.cm Total DLP DATA REPOSITORY: All CT scans at this facility are submitted to the National Radiology Data Registry (NRDR) Dose Index Registry (DIR) with the [employer] [place] [employer] (ACR). RADIATION OPTIMIZATION: All CT scans at this facility use at least one of these dose optimization te chniques: automated exposure control; mA and/or kV adjustment per patient size (includes targeted exa ms where dose is matched to clinical indication); or iterative reconstruction.
[2020-02-14] MEDS: Omnipaque 350 MG/ML 50 ML BTL PO (19:58)
[2020-02-14] MEDS: Breeza Beverage 473 ML BTL PO (20:00)
[2020-02-14] MEDS: Omnipaque 350 MG/ML 100 ML BTL IJ (21:09)
[2020-02-14] MEDS: Normal Saline - Diluent 50 ML VIAL IV (21:23)
[2020-02-14] MEDS: Normal Saline Flush 10 ML SYR IVP (21:24)
--- NOTE | 2020-02-14 21:36 | DI.VRAD_ITS ---
PROCEDURE INFORMATION: Exam: CT Abdomen And Pelvis With Contrast Exam date and time: 02/14/2020 9:16 PM Age: 74 years old Clinical indication: Abdominal pain; Localized; Left lower quadrant (llq); Patient HX: Pain, left lower quadrant TECHNIQUE: Imaging protocol: Computed tomography of the abdomen and pelvis with intravenous contrast. COMPARISON: CT ABDOMEN PELVIS W 01/25/2020 7:43 PM FINDINGS: Liver: Nonspecific lesion in the right hepatic lobe along the falciform ligament measuring 2 cm. Consider MRI to exclude underlying mass versus focal fatty infiltration. Gallbladder and bile ducts: Cholecystectomy. Pancreas: Normal. No ductal dilation. Spleen: Normal. No splenomegaly. Adrenals: Normal. No mass. Kidneys and ureters: Bilateral renal cysts, simple in appearance. The largest is left-sided and measures up to 2.7 cm in diameter. Stomach and bowel: Pneumatosis in the cecum. No portal venous air. Appendix: No evidence of appendicitis. Intraperitoneal space: Unremarkable. No free air. No significant fluid collection. Vasculature: Atherosclerosis. Lymph nodes: Unremarkable. No enlarged lymph nodes. Bladder: Unremarkable as visualized. Reproductive: Hysterectomy. Bones/joints: Left pars defect at L5. Grade 1 anterolisthesis of L5 on S1. Soft tissues: Unremarkable. IMPRESSION: Nonspecific lesion in the right hepatic lobe along the falciform ligament measuring 2 cm. Consider MRI to exclude underlying mass versus focal fatty infiltration. Simple renal cysts. No further follow-up is recommended. Pneumatosis in the cecum. No portal venous air. Dictated and Authenticated by: Chencho Hull MD. Ordering:ERICA Sky MD
[2020-02-14 22:10] VITALS: BP 142/82; PULSE 74; RESP 16; TEMP 36.4; O2SAT 99
[2020-02-14] MEDS: Acetaminophen 500 MG TAB 1000 MG PO (22:11)
== END 2020-02-14 22:00 | disposition home or self-care (01) ==
PROVIDERS: Emergency Provider Nurse Practitioner Acute Care; PCP Nurse Practitioner Family
DX: R10.32 Left lower quadrant pain (principal); K59.00 Constipation, unspecified; M79.652 Pain in left thigh; I10 Essential (primary) hypertension
CPT/HCPCS: 36415; 80048; 99285; 74177; 81003; 85025; 99284; J3490; Q9967

== ENCOUNTER 2020-03-03 10:47 | Outpatient (CLI) | payer MEDICARE, OTHER, SELFPAY ==
--- NOTE | 2020-03-03 15:07 | DI.RAD_ITS ---
EXAM: XR HIP PELVIS ADULT BL CLINICAL HISTORY: Bilateral hip pain, right worse than left,m25.552,m25.551 TECHNIQUE: COMPARISON: No exams were available for comparison FINDINGS: Three views were obtained. Cartilaginous joint spaces of the hips may be minimally narrowed. There are mild hypertrophic marginal osteophytes of the acetabula bilaterally, minimal marginal osteophytes of the femoral heads noted. There are moderate degenerative changes of the lower lumbar spine SI joints bilaterally. IMPRESSION: Mild DJD of the hips. No additional significant findings involving hips. RADIATION DOSE DELIVERED: Total DLP
== END 2020-03-03 11:07 ==
PROVIDERS: PCP Nurse Practitioner Family; Visit Provider Nurse Practitioner Family
DX: M16.0 Bilateral primary osteoarthritis of hip (principal)
CPT/HCPCS: 73521

== ENCOUNTER 2020-03-13 01:18 | Outpatient (CLI) | payer MEDICARE, OTHER, SELFPAY ==
--- NOTE | 2020-03-13 15:00 | DI.MRI_ITS ---
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 Pre and post gadolinium fat-suppressed T1 a xial and sagittal sequences were performed in addition to the routine sequences. 16 milliliters of D otarem were administered. COMPARISON: CT CT ABDOMEN PELVIS W from 01/25/[address] ABDOMEN PELVIS W from 02/14/2020 CR XR HIP PELVIS ADULT BL from 03/03/2020 FINDINGS: In the T11, T12 and L2 vertebral bodies, there are lesions which are mildly high signal on T1 weighte d images and higher signal on T2 weighted images and show some increased signal on stir sequences. Po stcontrast imaging shows mild enhancement. There is no definite cortical breakthrough. At the L2-3 le kenneth on the left, there is abnormal soft tissue density material showing enhancement in the left neura l foramen. This may involve a portion of the vertebral endplate and appears to extend along the nerve root. A few tiny foci of low signal are seen corresponding to the scattered sclerotic lesions seen o n CT. There is mild disc bulging at L1-2 and L2-3. There is bjzg-ng-asgdoyyo disc bulging at L3-4 and mild facet degenerative changes. The degenerative changes combine to produce mild central canal stenosis b ut no significant neural foraminal narrowing. At L4-5, there are facet degenerative changes causing s light spondylolisthesis. There is ligamentous hypertrophy as well as disc bulging which is eccentric toward the right. The findings produce moderate central canal stenosis and right neural foraminal asya rowing. There is right-sided spondylolysis at L5 and slight L5-S1 spondylolisthesis. There are facet degenerative changes but no significant neural foraminal narrowing. There is no significant disc bul ging at this level. Left renal cysts are incidentally noted. IMPRESSION: 1. Abnormal enhancing lesion in the left neural foramen at the L2-3 level may extend from the vertebr al body along the nerve root. Other abnormal bony lesions are seen at T11 and T12. The findings are s uspicious for metastatic disease versus multiple myeloma. 2. Degenerative changes causing moderate central canal stenosis at L4-5 as well as right neural fora kiersten narrowing.
[2020-03-13] MEDS: Gadoterate meglumine 20 ML VIAL 16 ML IVP (16:14)
== END 2020-03-13 01:38 ==
PROVIDERS: PCP Nurse Practitioner Family; Visit Provider Nurse Practitioner Family
DX: M47.26 Other spondylosis with radiculopathy, lumbar region (principal); M48.061 Spinal stenosis, lumbar region without neurogenic claudication; M89.9 Disorder of bone, unspecified
CPT/HCPCS: 72158

== ENCOUNTER 2020-03-21 01:12 | Outpatient (CLI) | payer MEDICARE, OTHER, SELFPAY ==
--- NOTE | 2020-03-21 07:30 | DI.RAD_ITS ---
EXAM: XR CHEST 2V PA LATERAL CLINICAL HISTORY: enhancing bony lesions on lumbar MRI, check lungs,? PRIMARY,R93.7 TECHNIQUE: 2D digital imaging was performed. COMPARISON: No exams were available for comparison FINDINGS: The heart is not enlarged. The lungs are clear and well expanded. No pleural effusion seen. Mediastin al contours appear intact. IMPRESSION: Normal chest. RADIATION DOSE DELIVERED: Total DLP
--- NOTE | 2020-03-21 13:43 | DI.MAMMO_ITS ---
EXAM: MG MAMMO SCREENING CLINICAL HISTORY: enhancing bony lesions on lumbar MRI, check breast,? PRIMARY,R93.7 TECHNIQUE: Mammograms were interpreted according to the usual protocol including computer analysis w [email or web address] CAD system, tomosynthesis and C-view imaging. COMPARISON: FINDINGS: The breasts are of moderate density with fairly symmetrical distribution fibroglandular tissue. No d ominant mass or clumped microcalcification is identified in either breast. The current examination i s compared with previous examinations including November 2018 and there has been no gross interval change in appearance comparison with previous studies. IMPRESSION: No specific evidence malignancy at this time. Routine screening examinations are suggested yearly in tervals in this age group according to the ACS ACR guidelines. BI-RADS Category 1 - Negative Breast Density - Category B - Scattered areas of fibroglandular density
== END 2020-03-21 01:32 ==
PROVIDERS: PCP Nurse Practitioner Family; Visit Provider Nurse Practitioner Family
DX: Z12.31 Encounter for screening mammogram for malignant neoplasm of breast (principal); R93.7 Abnormal findings on diagnostic imaging of other parts of musculoskeletal system
CPT/HCPCS: 77063; 77067; 71046

== ENCOUNTER → 2020-06-29 11:33 | Outpatient (BNVA) | payer MEDICARE, OTHER, SELFPAY | PROVIDERS: PCP Nurse Practitioner Family; Referring Provider Nurse Practitioner Family; Visit Provider Internal Medicine Cardiovascular Disease | DX: I48.91 Unspecified atrial fibrillation (principal); G47.33 Obstructive sleep apnea (adult) (pediatric); E78.5 Hyperlipidemia, unspecified | CPT/HCPCS: 99214; 99442 ==

== ENCOUNTER 2020-09-11 21:14 | Outpatient (REF) | payer MEDICARE, OTHER, SELFPAY ==
[2020-09-11 21:37] LABS: Abs Immature Grans 0.01 10^3/uL (0.0-0.06); Absolute Basophil Count 0.08 10^3/uL (0.0-0.2); Absolute Eosinophil Count 0.11 10^3/uL (0.0-0.7); Absolute Lymphocyte Count 1.51 10^3/uL (1.2-3.4); Absolute Neutrophil Count 3.08 10^3/uL (1.2-6.7); Basophils % 1.5; Eosinophils % 2.1; HCT 44.9 % (36.0-46.0); HGB 14.3 g/dL (11.2-15.7); Immature Grans % 0.2; Lymphocytes % 29.1; MCH 30.4 pg (27.0-33.0); MCHC 31.8 % (32.0-36.0); MCV 95.5 fL (80-95); MPV 10.3 fL (8.0-11.0); Monocytes % 7.7; Neutrophils % 59.4; Nucleated RBC 0 %; Platelet Count 374 10^3/uL (130-400); RDW 13.7 % (11.7-14.6); RDW-SD 48.8 fL; WBC 5.19 10^3/uL (4.4-10.8)
[2020-09-11 22:03] LABS: ALT 20 U/L (14-59); AST 14 U/L (15-37); Albumin 3.9 g/dL (3.4-5.0); Alkaline Phosphatase 97 U/L (46-116); BUN 19 mg/dL (7-18); Bilirubin, Total 0.5 mg/dL (0.2-1.0); Calcium 8.9 mg/dL (8.5-10.1); Chloride 107 mmol/L (98-107); Estimated GFR 54.35 (mL/min/1.73m2); FREE T4 0.96 ng/dL (0.76-1.46); Glucose 83 mg/dL (74-106); Potassium 4.5 mmol/L (3.5-5.1); Sodium 143 mmol/L (136-145); TSH 1.06 uIU/mL (0.36-3.74); Total Protein 6.8 g/dL (6.4-8.2)
== END 2020-09-11 21:15 | disposition home or self-care (01) ==
LOC: NCHCN 21:14
PROVIDERS: PCP Nurse Practitioner Family; Visit Provider Nurse Practitioner Family
DX: R63.4 Abnormal weight loss (principal); R41.3 Other amnesia
CPT/HCPCS: 80053; 84439; 84443; 85025

== ENCOUNTER 2020-12-05 13:57 | Outpatient (REF) | payer MEDICARE, OTHER, SELFPAY ==
[2020-12-05 17:45] LABS: Bilirubin Negative (Negative); Blood Trace-intact (Negative); Clarity Clear (Clear); Glucose Negative (Negative); Ketones Trace mg/dL (Negative); Leukocyte Esterase Small (Negative); Nitrite Negative (Negative); Specific Gravity 1.025 (1.005-1.025); Urobilinogen 0.2 EU/dL (Up TO 0.2)
[2020-12-05 17:54] LABS: Bacteria Rare HPF (Negative); C & S Indicated? Yes; Casts Negative LPF (Negative); Crystals Negative HPF (Negative); Epithelial Cells Few HPF (Negative); Mucus Negative (Negative); RBC 0-2 HPF (0-2)
== END 2020-12-05 13:58 | disposition home or self-care (01) ==
LOC: NCHCN 13:57
PROVIDERS: PCP Nurse Practitioner Family; Visit Provider Nurse Practitioner
DX: N39.0 Urinary tract infection, site not specified (principal)
CPT/HCPCS: 81003; 81015; 87086

== ENCOUNTER 2021-05-29 01:15 | Outpatient (CLI) | payer MEDICARE, OTHER, SELFPAY ==
--- NOTE | 2021-05-29 07:30 | DI.MAMMO_ITS ---
Exam(s) MAMMO SCREENING EXAM: MAMMO SCREENING CLINICAL HISTORY: screening,z12.39 TECHNIQUE: Bilateral full field digital CC and MLO mammographic images were obtained with 3D tomosyn thesis and utilizing computer aided detection (CAD). COMPARISON: Available for comparison. FINDINGS: Masses/Architectural Distortion: None seen. Microcalcifications: No suspicious pleomorphic-type are seen. Skin Thickening/Nipple Retraction: None. IMPRESSION: 1. No significant interval change with no specific features of malignancy noted. 2. Unless there is more urgent need, screening mammography is recommended, as per [place] guidelines. BI-RADS Category 1 - Negative Breast Density - Category B - Scattered areas of fibroglandular density Breast density category C or D implies that the patient has dense breast tissue. Dense breast tissue is very common and is not abnormal but dense breast tissue can make it harder to find cancer on a ma mmogram. Also, dense breast tissue may increase their breast cancer risk. This information about the result of the mammogram report was provided to the patient to raise their awareness. Use this report when you speak with the patient about their risks for breast cancer, which includes their family hist ory. At that time, you may recommend for more screening tests (Ultrasound or MRI) as they might be us eful based on their risk. A negative radiographic report should not delay biopsy if a dominant or clinically suspicious mass is present. Up to ten percent of cancers are not identified on mammography. A negative report may reinforce clinical impression. Adenosis and dense breasts may obscure an underlying neoplasm. False positive reports average 6 to 10%. Patient will receive a letter notifying them of these results.
== END 2021-05-29 01:35 ==
PROVIDERS: PCP Nurse Practitioner Family; Visit Provider Nurse Practitioner Family
DX: Z12.31 Encounter for screening mammogram for malignant neoplasm of breast (principal)
CPT/HCPCS: 77063; 77067

== ENCOUNTER → 2023-07-09 14:01 | Outpatient (CLI) | payer MEDICARE, OTHER, SELFPAY ==
--- NOTE | 2023-07-09 13:30 | DI.RAD_ITS ---
Exam(s) XR TIB/FIB LT XR ANKLE LT COMPLETE EXAM: XR ANKLE LT COMPLETE CLINICAL HISTORY: left ankle swelling M25.472 EFFUSION LEFT ANKLE TECHNIQUE: 2D digital imaging was performed. Three views of the ankle. Two views of the tibia and fibula COMPARISON: CR XR TIB/FIB LT from 07/09/2023 FINDINGS: BONES: No acute fracture is present. No bony destructive lesion is seen. Heel spurs. Small entheso phyte at patellar tendon insertion at tibial tubercle. JOINTS:The ankle mortise is normally aligned. The ankle and knee joint spaces are maintained. SOFT TISSUE: Lower leg edema, greatest around the malleoli. No abnormal gas collection or foreign vivian dy. IMPRESSION: Soft tissue swelling. DATA REPOSITORY: RADIATION DOSE DELIVERED:
--- OUTSIDE RECORDS SUMMARY | 2023-07-09 14:05 | XMS_ITS | Continuity of Care Document ---
Author Name Unknown Organization [facility] Address [address] [place] [address] Care Team Providers Care Medical Data Entry Clerk Name Role Phone Jeanne Chan Primary Care Physician Encounter [facility] Date(s): 02/11/23 - 02/11/[address] [address] Discharge Disposition: Home or Self Care Attending Physician: Jovanny Joseph MD Admitting Physician: Jovanny Joseph MD Allergies, Adverse Reactions, Alerts Substance Reaction Severity Status penicillins Itching Unknown Active Assessment and Plan Future Scheduled Tests Radiology* XR Hip 1 View w/ AP Pelvis Bilateral 10/01/22 Functional Status 02/11/23 Other exposure to Infectious Disease Non e Immunizations Given and Recorded Vaccine Date Status Refusal Reason SARS-CoV-2 (COVID-19) mRNA-1273 vaccine 08/18/20 R ecorded SARS-CoV-2 (COVID-19) mRNA-1273 vaccine 07/20/20 R ecorded influenza virus vaccine, inactivated 04/08/15 Cade rded pneumococcal 13-valent conjugate vaccine 06/26/14 Recorded Novel [id number], all formulation 05/31/09 Recorded zoster vaccine live 05/26/07 Recorded pneumococcal 23-polyvalent vaccine 05/26/01 Record ed Medications citalopram 10 mg oral tablet 10 mg = 1 tab, Oral, Daily, 0 Refill(s) Start Date: 01/31/22 Status: Ordered furosemide 20 mg oral tablet 20 mg = 1 tab, Oral, Daily, 0 Refill(s) Start Date: 01/31/22 Status: Ordered gabapentin 300 mg oral capsule 300 mg = 1 cap, Oral, BID, 0 Refill(s) Start Date: 01/31/22 Status: Ordered Medrol 4 mg oral tablet 1 packets, Oral, Daily, as directed on package labeling, # 21 tab, 0 Refill(s), Pharmacy: [id number], 163, cm, 04/06/22 12:37:00 EST, Height/Length Dosing, 68, kg, 04/06/22 12:37:00 EST, Weight Dosing Start Date: 04/06/22 Stop Date: 04/12/22 Status: Ordered metoprolol succinate 25 mg oral tablet, extended release 25 mg = 1 tab, Oral, Daily, 0 Refill(s) Start Date: 01/31/22 Status: Ordered omeprazole 20 mg oral delayed release tablet 20 mg = 1 tab, Oral, Daily, 0 Refill(s) Start Date: 01/31/22 Status: Ordered potassium chloride 10 mEq oral tablet, extended release 10 mEq = 1 tab, Oral, Daily, 0 Refill(s) Start Date: 01/31/22 Status: Ordered Xarelto 20 mg oral tablet 20 mg = 1 tab, Oral, every evening, 0 Refill(s) Start Date: 01/31/22 Status: Ordered Problem List Condition Confirmation Course Effective Dates Status H ealth Status Informant Alzheimer disease Confirmed Active Atrial fibrillation Confirmed Active GERD (gastroesophageal reflux disease) Confirmed Active Valvular heart disease Confirmed Active Hip pain Confirmed Active Hyperlipidemia Confirmed Active DJD (degenerative joint disease) Confirmed Active Sleep apnea Confirmed Active Results Laboratory List Name Date Urinalysis Microscopic 02/11/23 Urinalysis with Micro if Indicated and C ulture if Indicated 02/11/23 Blood Gas Venous 02/11/23 CBC w/ Diff 02/11/23 Comprehensive Metabolic Panel (CMP) 02/11 Lactic Acid 02/11/23 Magnesium Level 02/11/23 Troponin-I 02/11/23 Automated Diff 02/11/23 Most recent to oldest [Reference Range]: 1 WBC [5.0-10.0 x10^3/mcL] 7.3 x10^3/mcL (02/11/23 6:30 PM) RBC [4.1-5.3 x10^6/mcL] 4.5 x10^6/mcL (02/11/23 6:30 PM) Neutro Auto [40.0-75.0 %] 60.7 % (02/11/23 6:30 PM) Lymph Auto [20.0-50.0 %] 27.6 % (02/11/23 6:30 PM) [place] Auto [2.0-15.0 %] 7.2 % (02/11/23 6:30 PM) Basophil Auto [0.0-1.0 %] 1.0 % (02/11/23 6:30 PM) BUN [7-18 mg/dL] 20 mg/dL *HI* (02/11/23:30 PM) UA Color Yellow (02/11/23:38 PM) UA WBC [0-3] 0-3 (02/11/23:38 PM) Glucose Level [74-106 mg/dL] 96 mg/dL (02/11/23 6:30 PM) Potassium Level [3.5-5.1 mmol/L] 4.0 mmo l/L (02/11/23 6:30 PM) MCV [80.0-96.0 fL] 96.5 fL *HI* (02/11/23:30 PM) UA Urobilinogen Normal (02/11/23 6:38 PM) UA Bili [Negative] Negative (02/11/23:38 PM) CO2 Total Venous 32 mmol/L *NA* (02/11/23:30 PM) UA Ketones Negative (02/11/23:38 PM) HCO3 Venous [22-30 mmol/L] 30 mmol/L (02/11/23 6:30 PM) AST [15-37 unit/L] 17 unit/L (02/11/23 6:30 PM) ALT [14-59 unit/L] 25 unit/L (02/11/23 6:30 PM) MCHC [31.0-35.0 g/dL] 32.2 g/dL (02/11/23 6:30 PM) Troponin-I [0.0-51.4 pg/mL] 8.1 pg/mL (02/11/23 6:30 PM) Sodium Level [136-145 mmol/L] 144 mmol/L (02/11/23 6:30 PM) UA RBC [0-2] 0-2 (02/11/23 6:38 PM) UA Leuk Est Negative (9/19/23 6:38 PM) UA Nitrite Negative (02/11/23 6:38 PM) UA Glucose [Negative] Negative (02/11/23 6:38 PM) Hct [37.0-47.0 %] 43.8 % (02/11/23 6:30 PM) UA Bacteria Few /HPF *ABN* (02/11/23 6:38 PM) Calcium Level [8.5-10.1 mg/dL] 8.7 mg/dL (02/11/23 6:30 PM) Albumin Level [3.4-5.0 g/dL] 3.3 g/dL *LOW* (02/11/23 6:30 PM) Protein Total [6.4-8.2 g/dL] 6.7 g/dL (02/11/23 6:30 PM) UA Protein Negative (02/11/23 6:38 PM) MCH [26.0-32.0 pg] 31.1 pg (02/11/23 6:30 PM) Magnesium Level [1.8-2.4 mg/dL] 2.2 mg/d L (02/11/23 6:30 PM) Neutro Absolute 4.4 x10^3/mcL *NA* (02/11/23 6:30 PM) Bilirubin Total [0.2-1.0 mg/dL] 0.2 mg/d L (02/11/23 6:30 PM) Hgb [12.0-16.0 g/dL] 14.1 g/dL (02/11/23 6:30 PM) Alk Phos [46-146 unit/L] 91 unit/L (02/11/23 6:30 PM) UA Blood Trace *ABN* (02/11/23 6:38 PM) pCO2 He [33-47 mmHg] 54 mmHg *HI* (02/11/23 6:30 PM) UA Mucous None Seen /HPF (02/11/23 6:38 PM) UA Spec Grav 1.025 *NA* (02/11/23 6:38 PM) Platelets [130-450 x10^3/mcL] 371 x10^3/ mcL (02/11/23 6:30 PM) CO2 [21-32 mmol/L] 30 mmol/L (02/11/23 6:30 PM) Lactic Acid Lvl [0.7-2.0 mmol/L] 1.4 mmo l/L (02/11/23 6:30 PM) UA Squam Epithelial [None Seen] Few *ABN* (02/11/23 6:38 PM) pO2 He 23 mmHg *NA* (02/11/23 6:30 PM) UA pH 5.5 *NA* (02/11/23 6:38 PM) pH He [7.32-7.43 pH unit(s)] 7.35 pH un it(s) (02/11/23 6:30 PM) O2 Sat He 36 % *NA* (02/11/23 6:30 PM) eGFR Non-AA [>=60] 65 (02/11/23 6:30 PM) eGFR AA [>=60] 65 (02/11/23 6:30 PM) Base Excess Venous 3.0 mmol/L *NA* (02/11/23 6:30 PM) UA Appear Clear (02/11/23 6:38 PM) Chloride Level [98-107 mmol/L] 107 mmol/ L (02/11/23 6:30 PM) RDW-CV [11.5-14.5 %] 13.5 % (02/11/23 6:30 PM) Imm Gran Auto [0.0-0.9 %] 0.1 % (02/11/23 6:30 PM) UA Culture Ind?. Indicated (02/11/23 6:38 PM) Creatinine Level [0.55-1.02 mg/dL] 0.92 mg/dL (02/11/23 6:30 PM) Eos, Auto [1.0-6.0 %] 3.4 % (02/11/23 6:30 PM) Orders for Microbiology Reports Name Date Urine Culture 02/11/23 Microbiology Reports TEST:Urine Culture STATUS:Order in Progress BODY SITE: SOURCE:Urine COLLECTED DATE/TIME:02/11/23 6:38 PM PRELIMINARY REPORT 10,000 - 100,000 cfu/ml Mixed Gram Positive Karen Vital Signs Most recent to oldest [Reference Range]: 1 2 3 Temperature Temporal Artery [36-38 Deg C] 36.0 Deg C (02/11/23 5:10 PM) Peripheral Pulse Rate [60-100 bpm] 42 bpm *LOW* (02/11/23 7:05 PM) 67 bpm (02/11/23 6:52 PM) 96 bpm (02/11/23 5:10 PM) Heart Rate Monitored [60-100 bpm] 81 bpm (02/11/23 7:35 PM) 83 bpm (02/11/23 7:05 PM) 87 bpm (02/11/23 6:52 PM) Respiratory Rate [12-24 br/min] 20 br/min (02/11/23 7:35 PM) 19 br/min (02/11/23 7:05 PM) 21 br/min (02/11/23 6:52 PM) Blood Pressure [90-140/60-90 mmHg] 125/71mmHg (02/11/23 7:05 PM) 122/90mmHg (02/11/23 5:10 PM) Weight Dosing 82.00 kg (02/11/23 5:19 PM) Weight Estimated 82.00 kg (02/11/23 5:10 PM) Height/Length Dosing 163.000 cm (02/11/23 5:19 PM) Height/Length Estimated 163.000 cm (02/11/23 5:10 PM) Social History Social History Type Response Tobacco Former tobacco user Tobacco Use:. Sex Female Physician Emergency department Note * Jovanny Joseph MD: PERFORM Event Display: ED Note Physician Authored Date: [id number] ESPINOTREY AZAR :1945 Age:77 years Sex:Female Visit Date:02/11/2023 Primary Care Physician: Jeanne Chan NP Basic Information Time Seen: Jovanny Joseph MD / 02/11/2023 17:40 Chief Complaint pt BIBA for a cough and some wheezing for about 3 weeks, pt is just not feeling well. pt has a hx of dementia History Of Present Illness: Presenting concern is chest pain.?? Patient has dementia and is difficult for her to describe the quality of pain.?? Associated with??decreased eating. ??Location of the pain is right anterior chest. Review of Systems: Review of systems is negative for fever. ??Is positive for chest pain,??vomiting, constipation, abdominal discomfort. ??Negative for urinary symptoms.?? Patient also endorses leg cramps and arm cramps. Physical Exam Vitals & Measurements T:??36.0?C ??(Temporal Artery)?? HR:??42??(Peripheral)?? HR:??83??(Monitored)?? RR:??19?? BP:??125/71?? SpO2:??98%?? HT:??163.000??cm?? WT:??82.00??kg??(Estimated)?? O2 Therapy:??Room air?? No distress.?? Tender right anterior chest wall.?? Breath sounds show occasional rhonchi.?? Heart sounds are remote.?? Abdomen is obese and nontender.?? Extremities show no significant edema. Medical Decision Making: Problem complexity is low. ??Data complexity is low. ??Management risk are low.?? [facility] coding 67642. Procedure No Qualifying Data Assessment/Plan Ordered: Discharge Patient, 02/11/23 19:27:00 EDT, Home Independently, Constant Indicator Urine Culture, Urine, Stat collect, ST - Stat, 02/11/23 18:38:00 EDT, Once, Nurse collect, Collected, 02/11/23 18:38:00 EDT, Print Label, [id number] Discharge diagnosis is chest wall pain. Medication Reconciliation Unchanged citalopram (citalopram 10 mg oral tablet)1 tab Oral (given by mouth) every day. ?? furosemide (furosemide 20 mg oral tablet)1 tab Oral (given by mouth) every day. ?? gabapentin (gabapentin 300 mg oral capsule)1 Capsules Oral (given by mouth) 2 times a day. ?? methylPREDNISolone (Medrol 4 mg oral tablet)1 packets Oral (given by mouth) every day for 6 Days. as directed on package labeling. Refills: 0. ?? metoprolol (metoprolol succinate 25 mg oral tablet, extended release)1 tab Oral (given by mouth) every day. ?? omeprazole (omeprazole 20 mg oral delayed release tablet)1 tab Oral (given by mouth) every day. ?? potassium chloride (potassium chloride 10 mEq oral tablet, extended release)1 tab Oral (given by mouth) every day. ?? rivaroxaban (Xarelto 20 mg oral tablet)1 tab Oral (given by mouth) every evening. Problem List/Past Medical History Ongoing Alzheimer disease Atrial fibrillation DJD (degenerative joint disease) GERD (gastroesophageal reflux disease) Hip pain Hyperlipidemia Sleep apnea Valvular heart disease Historical No qualifying data Allergies penicillins??(Itching) Social History Alcohol Never Electronic Cigarette/Vaping Electronic Cigarette Use: Never. Tobacco Former tobacco user Tobacco Use:. Lab Results Blood Gases?? LATEST RESULTS?? pH He?? 02/11/23 18:30?? 7.35?? pCO2 He?? 02/11/23 18:30?? 54 ??High?? pO2 He?? 02/11/23 18:30?? 23?? HCO3 Venous?? 02/11/23 18:30?? 30?? O2 Sat He?? 02/11/23 18:30?? 36?? CO2 Total Venous?? 02/11/23 18:30?? 32?? Base Excess Venous?? 02/11/23 18:30?? 3.0? CBC and Differential?? LATEST RESULTS?? HISTORICAL RESULTS?? WBC?? 02/11/23 18:30?? 7.3?? 10/22/22?? 5.7?? RBC?? 02/11/23 18:30?? 4.5?? 10/22/22?? 4.3?? Hgb?? 02/11/23 18:30?? 14.1?? 10/22/22?? 13.0?? Hct?? 02/11/23 18:30?? 43.8?? 10/22/22?? 41.3?? MCV?? 02/11/23 18:30?? 96.5 ??High?? 10/22/22?? 96.9 ??High?? MCH?? 02/11/23 18:30?? 31.1?? 10/22/22?? 30.5?? MCHC?? 02/11/23 18:30?? 32.2?? 10/22/22?? 31.5?? RDW-CV?? 02/11/23 18:30?? 13.5?? 10/22/22?? 13.8?? Platelets?? 02/11/23 18:30?? 371?? 10/22/22?? 314?? Neutro Auto?? 02/11/23 18:30?? 60.7?? 10/22/22?? 47.9?? Lymph Auto?? 02/11/23 18:30?? 27.6?? 10/22/22?? 35.0?? [place] Auto?? 02/11/23 18:30?? 7.2?? 10/22/22?? 8.1?? Eos, Auto?? 02/11/23 18:30?? 3.4?? 10/22/22?? 6.7 ??High?? Basophil Auto?? 02/11/23 18:30?? 1.0?? 10/22/22?? 1.9 ??High?? Imm Gran Auto?? 02/11/23 18:30?? 0.1?? 10/22/22?? 0.4?? Neutro Absolute?? 02/11/23 18:30?? 4.4?? 10/22/22?? 2.7? Routine Chemistry?? LATEST RESULTS?? HISTORICAL RESULTS?? Sodium Level?? 02/11/23 18:30?? 144?? 10/22/22?? 142?? Potassium Level?? 02/11/23 18:30?? 4.0?? 10/22/22?? 4.1?? Chloride Level?? 02/11/23 18:30?? 107?? 10/22/22?? 106?? CO2?? 02/11/23 18:30?? 30?? 10/22/22?? 30?? Alk Phos?? 02/11/23 18:30?? 91?? 10/22/22?? 92?? AST?? 02/11/23 18:30?? 17?? 10/22/22?? 18?? ALT?? 02/11/23 18:30?? 25?? 10/22/22?? 21?? BUN?? 02/11/23 18:30?? 20 ??High?? 10/22/22?? 23 ??High?? Glucose Level?? 02/11/23 18:30?? 96?? 10/22/22?? 102?? Creatinine Level?? 02/11/23 18:30?? 0.92?? 10/22/22?? 1.05 ??High?? eGFR AA?? 02/11/23 18:30?? 65?? 10/22/22?? 55 ??Low?? eGFR Non-AA?? 02/11/23 18:30?? 65?? 10/22/22?? 55 ??Low?? Calcium Level?? 02/11/23 18:30?? 8.7?? 10/22/22?? 8.5?? Protein Total?? 02/11/23 18:30?? 6.7?? 10/22/22?? 6.6?? Albumin Level?? 02/11/23 18:30?? 3.3 ??Low?? 10/22/22?? 3.4?? Bilirubin Total?? 02/11/23 18:30?? 0.2?? 10/22/22?? 0.5?? Lactic Acid Lvl?? 02/11/23 18:30?? 1.4? Magnesium Level?? 02/11/23 18:30?? 2.2?? 05/21/22?? 2.3? Cardiac Isoenzymes?? LATEST RESULTS?? Troponin-I?? 02/11/23 18:30?? 8.1? UA Macroscopic?? LATEST RESULTS?? HISTORICAL RESULTS?? UA Color?? 02/11/23 18:38?? Yellow?? 07/31/22?? Yellow?? UA Appear?? 02/11/23 18:38?? Clear?? 07/31/22?? Clear?? UA Glucose?? 02/11/23 18:38?? Negative?? 07/31/22?? Negative?? UA Bili?? 02/11/23 18:38?? Negative?? 07/31/22?? Negative?? UA Ketones?? 02/11/23 18:38?? Negative?? 07/31/22?? Negative?? UA Spec Grav?? 02/11/23 18:38?? 1.025?? 07/31/22?? 1.025?? UA Blood?? 02/11/23 18:38?? Trace Abnormal?? 07/31/22?? Trace Abnormal?? UA pH?? 02/11/23 18:38?? 5.5?? 07/31/22?? 5.5?? UA Protein?? 02/11/23 18:38?? Negative?? 07/31/22?? Negative?? UA Urobilinogen?? 02/11/23 18:38?? Normal?? 07/31/22?? Normal?? UA Nitrite?? 02/11/23 18:38?? Negative?? 07/31/22?? Negative?? UA Leuk Est?? 02/11/23 18:38?? Negative?? 07/31/22?? Negative?? UA Culture Ind?.?? 02/11/23 18:38?? Indicated?? 07/31/22?? Not Applicable? UA Microscopic?? LATEST RESULTS?? HISTORICAL RESULTS?? UA WBC?? 02/11/23 18:38?? 0-3?? 07/31/22?? 0-3?? UA RBC?? 02/11/23 18:38?? 0-2?? 07/31/22?? 0-2?? UA Squam Epithelial?? 02/11/23 18:38?? Few Abnormal?? 07/31/22?? Rare?? UA Mucous?? 02/11/23 18:38?? None Seen?? 07/31/22?? None Seen?? UA Bacteria?? 02/11/23 18:38?? Few Abnormal?? 07/31/22?? None Seen? Electronically Signed on 02/11/23 07:28 PM Jovanny Joseph MD Emergency department Discharge instructions * Jovanny Joseph MD: PERFORM Event Display: ED Discharge Information Authored Date: [id number] RTEY ESPINO :1945 Age:77 years Sex:Female Visit Date:02/11/2023 Primary Care Physician: Jeanne Chan PUBLIC RECORDS OFFICER Discharge Instructions We would like to thank you for allowing us to assist you with your healthcare needs. The following includes patient education materials and information regarding your injury/illness. Discharge Vitals Temperature??(Temporal Artery) 96.8 ??F (36.0 ??C) Heart Rate??(Peripheral) 42 Heart Rate??(Monitored) 83 Respiratory Rate?? 19 Blood Pressure?? 125/71?? Height?? 64.17 in (163.000 cm) Weight??(Estimated) 180.81 lb (82.00 kg) Allergies penicillins??(Itching) What to Do Next Instructions from Your Care Team There is no evidence of any significant cardiac??or lung problem. ??Your??pain is coming from??soreness in your chest wall.?? You may take acetaminophen??1000 g up to 4 times per day??and or ibuprofen 600 mg with food up to 4 times per day.?? There should be gradual improvement.?? Follow-up here with your primary care provider as needed. ?? Jovanny Joseph MD ? You were treated today on an emergency basis; it may be fregoso to contact your primary care provider to notify them of your visit today. You may have been referred to your regular doctor or a specialist, please follow up as instructed. If your condition worsens or you can't get in to see the doctor, contact the Emergency Department. Medications What How Much When Why Instructions Next Dose Unchanged citalopram (citalopram 10 mg oral tablet) 1 tab Oral (given by mouth) Every day Unchanged furosemide (furosemide 20 mg oral tablet) 1 tab Oral (given by mouth) Every day Unchanged gabapentin (gabapentin 300 mg oral capsule) 1 Capsules Oral (given by mouth) 2 times a day Unchanged methylPREDNISolone (Medrol 4 mg oral tablet) 1 packets Oral (given by mouth) Every day Upper respiratory disease Reactive airway disease with wheezing Duration: 6 Days as directed on package labeling ?? Unchanged metoprolol (metoprolol succinate 25 mg oral tablet, extended release) 1 tab Oral (given by mouth) Every day Unchanged omeprazole (omeprazole 20 mg oral delayed release tablet) 1 tab Oral (given by mouth) Every day Unchanged potassium chloride (potassium chloride 10 mEq oral tablet, extended release) 1 tab Oral (given by mouth) Every day Unchanged rivaroxaban (Xarelto 20 mg oral tablet) 1 tab Oral (given by mouth) Every evening Tests Performed Lab Test Name Test Result Date/Time pH He 7.35 pH unit(s) 02/11/2023 18:30 EDT pCO2 He 54 mmHg 02/11/2023 18:30 EDT pO2 He 23 mmHg 02/11/2023 18:30 EDT HCO3 Venous 30 mmol/L 02/11/2023 18:30 EDT O2 Sat He 36 % 02/11/2023 18:30 EDT CO2 Total Venous 32 mmol/L 02/11/2023 18:30 EDT Base Excess Venous 3.0 mmol/L 02/11/2023 18:30 EDT WBC 7.3 x10^3/mcL 02/11/2023 18:30 EDT RBC 4.5 x10^6/mcL 02/11/2023 18:30 EDT Hgb 14.1 g/dL 02/11/2023 18:30 EDT Hct 43.8 % 02/11/2023 18:30 EDT MCV 96.5 fL 02/11/2023 18:30 EDT MCH 31.1 pg 02/11/2023 18:30 EDT MCHC 32.2 g/dL 02/11/2023 18:30 EDT RDW-CV 13.5 % 02/11/2023 18:30 EDT Platelets 371 x10^3/mcL 02/11/2023 18:30 EDT Neutro Auto 60.7 % 02/11/2023 18:30 EDT Lymph Auto 27.6 % 02/11/2023 18:30 EDT [place] Auto 7.2 % 02/11/2023 18:30 EDT Eos, Auto 3.4 % 02/11/2023 18:30 EDT Basophil Auto 1.0 % 02/11/2023 18:30 EDT Imm Gran Auto 0.1 % 02/11/2023 18:30 EDT Neutro Absolute 4.4 x10^3/mcL 02/11/2023 18:30 EDT Sodium Level 144 mmol/L 02/11/2023 18:30 EDT Potassium Level 4.0 mmol/L 02/11/2023 18:30 EDT Chloride Level 107 mmol/L 02/11/2023 18:30 EDT CO2 30 mmol/L 02/11/2023 18:30 EDT Alk Phos 91 unit/L 02/11/2023 18:30 EDT AST 17 unit/L 02/11/2023 18:30 EDT ALT 25 unit/L 02/11/2023 18:30 EDT BUN 20 mg/dL 02/11/2023 18:30 EDT Glucose Level 96 mg/dL 02/11/2023 18:30 EDT Creatinine Level 0.92 mg/dL 02/11/2023 18:30 EDT eGFR AA 65 02/11/2023 18:30 EDT eGFR Non-AA 65 02/11/2023 18:30 EDT Calcium Level 8.7 mg/dL 02/11/2023 18:30 EDT Protein Total 6.7 g/dL 02/11/2023 18:30 EDT Albumin Level 3.3 g/dL 02/11/2023 18:30 EDT Bilirubin Total 0.2 mg/dL 02/11/2023 18:30 EDT Lactic Acid Lvl 1.4 mmol/L 02/11/2023 18:30 EDT Magnesium Level 2.2 mg/dL 02/11/2023 18:30 EDT Troponin-I 8.1 pg/mL 02/11/2023 18:30 EDT UA Color YELLOW. 02/11/2023 18:38 EDT UA Appear CLEAR. 02/11/2023 18:38 EDT UA Glucose NEGATIVE 02/11/2023 18:38 EDT UA Bili NEGATIVE 02/11/2023 18:38 EDT UA Ketones NEGATIVE 02/11/2023 18:38 EDT UA Spec Grav 1.025 02/11/2023 18:38 EDT UA Blood TRACE. 02/11/2023 18:38 EDT UA pH 5.5 02/11/2023 18:38 EDT UA Protein NEGATIVE 02/11/2023 18:38 EDT UA Urobilinogen 0.2 Uro 02/11/2023 18:38 EDT UA Nitrite NEGATIVE 02/11/2023 18:38 EDT UA Leuk Est NEGATIVE 02/11/2023 18:38 EDT UA Culture Ind?. Indicated 02/11/2023 18:38 EDT UA WBC 0-3 02/11/2023 18:38 EDT UA RBC 0-2 02/11/2023 18:38 EDT UA Squam Epithelial Few 02/11/2023 18:38 EDT UA Mucous None Seen 02/11/2023 18:38 EDT UA Bacteria Few 02/11/2023 18:38 EDT Patient/Conveyor Attendant Signature Patient Name:ESPINO TREY J I have received this information and my questions have been answered. Patient/Conveyor Attendant Name: Patient/Conveyor Attendant Signature: Relationship to Patient: Witness Name/Signature: Date: Electronically Signed on: 02/11/2023 19:28 EDTSigned by:[facility] Patient Care team information Care Team Personnel Name: Jeanne Chan NP Position: No Access Member Role: Informed Provider Address: Address: [address] [address]- [place] Name: Desi Simms Position: Nurse Member Role: ED Nurse Name: Jovanny Joseph MD Position: Physician Member Role: ED Physician Address: Address: [address] [place] [id number] [place] Care Team Related Persons Name: TERRI LOYD Name: KIRILL WALSH Address: Home [address] [place], [place] [id number]
--- OUTSIDE RECORDS SUMMARY | 2023-07-09 14:05 | XMS_ITS | Continuity of Care Document ---
Author Name Unknown Organization [facility] Address [address] [place] [address] Care Team Providers Care Can Piler Name Role Phone Jeanne Chan Primary Care Physician Encounter [facility] Date(s): 07/31/22 - 07/31/[address] [id number] Discharge Disposition: Home or Self Care Attending Physician: Marielena Hdz Admitting Physician: Marielena Hdz Allergies, Adverse Reactions, Alerts Substance Reaction Severity Status penicillins Itching Unknown Active Immunizations Given and Recorded Vaccine Date Status Refusal Reason SARS-CoV-2 (COVID-19) mRNA-1273 vaccine 08/18/20 R ecorded SARS-CoV-2 (COVID-19) mRNA-1273 vaccine 07/20/20 R ecorded influenza virus vaccine, inactivated 04/08/15 Cade rded pneumococcal 13-valent conjugate vaccine 06/26/14 Recorded Novel [id number], all formulation 05/31/09 Recorded zoster vaccine live [...] labeling, # 21 tab, 0 Refill(s), Pharmacy: [id number], 163, cm, 04/06/22 12:37:00 EST, Height/Length [...] Confirmed Active Valvular heart disease Confirmed Active Hyperlipidemia Confirmed Active DJD (degenerative joint disease) Confirmed Active Sleep apnea Confirmed Active Results Laboratory List Name Date Urinalysis Microscopic 07/31/22 Urinalysis with Microscopic 07/31/22 Most recent to oldest [Reference Range]: 1 UA Color Yellow (07/31/22 8:45 PM) UA WBC [0-3] 0-3 (07/31/22 8:45 PM) UA Urobilinogen Normal (07/31/22 8:45 PM) UA Bili [Negative] Negative (07/31/22 8:45 PM) UA Ketones Negative (07/31/22 8:45 PM) UA RBC [0-2] 0-2 (07/31/22 8:45 PM) UA Leuk Est Negative (07/31/22 8:45 PM) UA Nitrite Negative (07/31/22 8:45 PM) UA Glucose [Negative] Negative (07/31/22 8:45 PM) UA Bacteria None Seen /HPF (07/31/22 8:45 PM) UA Protein Negative (07/31/22 8:45 PM) UA Blood Trace *ABN* (07/31/22 8:45 PM) UA Mucous None Seen /HPF (07/31/22 8:45 PM) UA Spec Grav 1.025 *NA* (07/31/22 8:45 PM) UA Squam Epithelial [None Seen] Rare (07/31/22 8:45 PM) UA pH 5.5 *NA* (07/31/22 8:45 PM) UA Appear Clear (07/31/22 8:45 PM) UA Culture Ind?. Not Applicable (07/31/22 8:45 PM) Orders for Microbiology Reports Name Date Urine Culture 07/31/22 Microbiology Reports TEST:Urine Culture STATUS:Order in Progress BODY SITE: SOURCE:Urine, Clean Catch COLLECTED DATE/TIME:07/31/22 8:45 PM PRELIMINARY REPORT <10,000 cfu/ml Gram Positive Cocci Social History Social History Type Response Tobacco Former tobacco user Tobacco Use:. Sex Female Patient Care team information Care Team Personnel Name: Jeanne Chan [employer]URITY OFFICER Position: No Access Member Role: Primary Care Physician Address: Address: [address] Care Team Related Persons Name: TERRI LOYD Name: KIRILL TALBERT
--- OUTSIDE RECORDS SUMMARY | 2023-07-09 14:05 | XMS_ITS | Continuity of Care Document ---
Author Name Unknown Organization [facility] Address [address] [place] [address] Care Team Providers Care Manager Line Name Role Phone Jeanne Chan Primary Care Physician Encounter NCTY_OR Date(s): 11/22/22 - 11/22/[address] [id number] Discharge Disposition: Home or Self Care Attending Physician: Jeanne Chan NP Admitting Physician: Jeanne Chan NP Referring Physician: Jeanne Chan CHECK CASHIER Allergies, Adverse Reactions, Alerts Substance Reaction Severity Status penicillins Itching Unknown Active Assessment and Plan Future Appointments Future Scheduled Tests Radiology* XR Hip 1 View w/ AP Pelvis Bilateral 10/01/22 Immunizations Given and Recorded Vaccine Date Status Refusal Reason SARS-CoV-2 (COVID-19) mRNA-1273 vaccine 08/18/20 R ecorded SARS-CoV-2 (COVID-19) mRNA-1273 vaccine 07/20/20 R ecorded influenza virus vaccine, inactivated 04/08/15 Cade rded pneumococcal 13-valent conjugate vaccine 06/26/14 Recorded Novel [id number], all formulation 05/31/09 Recorded zoster vaccine live [...] labeling, # 21 tab, 0 Refill(s), Pharmacy: [facility], 163, cm, 04/06/22 12:37:00 EST, Height/Length [...] disease) Confirmed Active Sleep apnea Confirmed Active Social History Social History Type Response Tobacco Former tobacco user Tobacco Use:. Sex Female Patient Care team information Care Team Personnel Name: Jeanne Chan CHECK CASHIER Position: No Access Member Role: Informed Provider Address: Address: [address] Care Team Related Persons Name: TERRI LOYD Name: KIRILL TALBERT Address: Home
--- OUTSIDE RECORDS SUMMARY | 2023-07-09 14:05 | XMS_ITS | Continuity of Care Document ---
Author Name Unknown Organization [facility] Address [address] [place] [address] Care Team Providers Care Rotary Machine Operator Name Role Phone Jeanne Chan Primary Care Physician Encounter [facility] Date(s): 10/22/22 - 10/22/[address] [address] Discharge Disposition: Home or Self Care Attending Physician: Jeanne Chan NP Admitting Physician: Jeanne Chan NP Referring Physician: Jeanne Chan PERSON INVESTIGATOR Allergies, Adverse Reactions, Alerts Substance Reaction Severity [...] pneumococcal 13-valent conjugate vaccine 06/26/14 Recorded Novel [id number], all formulation 05/31/09 Recorded zoster vaccine live [...] labeling, # 21 tab, 0 Refill(s), Pharmacy: [id number], 163, cm, 04/06/22 12:37:00 EST, Height/Length [...] Confirmed Active Results Laboratory List Name Date CBC w/ Diff 10/22/22 Comprehensive Metabolic Panel 10/22/22 Hepatitis C Ab w/Rflx to HCV RNA PCR [facility] 10/22/22 Lipid Panel 10/22/22 TSH w/ Rflx to Free T4 10/22/22 Automated Diff 10/22/22 Most recent to oldest [Reference Range]: 1 WBC [5.0-10.0 x10^3/mcL] 5.7 x10^3/mcL (10/22/22 9:13 AM) RBC [4.1-5.3 x10^6/mcL] 4.3 x10^6/mcL (10/22/22 9:13 AM) Neutro Auto [40.0-75.0 %] 47.9 % (10/22/22 9:13 AM) Lymph Auto [20.0-50.0 %] 35.0 % (10/22/22 9:13 AM) Taylor Auto [2.0-15.0 %] 8.1 % (10/22/22 9:13 AM) Basophil Auto [0.0-1.0 %] 1.9 % *HI* (10/22/22:13 AM) BUN [7-18 mg/dL] 23 mg/dL *HI* (10/22/22:13 AM) Cholesterol Total [50-200 mg/dL] 184 mg/ dL (10/22/22:13 AM) LDL [0-130 mg/dL] 119 mg/dL (10/22/22:13 AM) Glucose Level [74-106 mg/dL] 102 mg/dL (10/22/22:13 AM) Potassium Level [3.5-5.1 mmol/L] 4.1 mmo l/L (10/22/22 AM) MCV [80.0-96.0 fL] 96.9 fL *HI* (10/22/22: AM) HDL [40-60 mg/dL] 43 mg/dL (10/22/22:13 AM) AST [15-37 unit/L] 18 unit/L (10/22/22:13 AM) ALT [14-59 unit/L] 21 unit/L (10/22/2213 AM) MCHC [31.0-35.0 g/dL] 31.5 g/dL (10/22/22:13 AM) Sodium Level [136-145 mmol/L] 142 mmol/L (10/22/22:13 AM) Hct [37.0-47.0 %] 41.3 % (10/22/2213 AM) Triglycerides [0-150 mg/dL] 110 mg/dL (10/22/22:13 AM) Calcium Level [8.5-10.1 mg/dL] 8.5 mg/dL (10/22/22:13 AM) Albumin Level [3.4-5.0 g/dL] 3.4 g/dL (10/22/22:13 AM) Protein Total [6.4-8.2 g/dL] 6.6 g/dL (10/22/22:13 AM) MCH [26.0-32.0 pg] 30.5 pg (10/22/22 9:13 AM) Neutro Absolute 2.7 x10^3/mcL *NA* (10/22/22 9:13 AM) Bilirubin Total [0.2-1.0 mg/dL] 0.5 mg/d L (10/22/22 9:13 AM) Hgb [12.0-16.0 g/dL] 13.0 g/dL (10/22/22 9:13 AM) Alk Phos [46-146 unit/L] 92 unit/L (10/22/22 9:13 AM) Platelets [130-450 x10^3/mcL] 314 x10^3/ mcL (10/22/22 9:13 AM) CO2 [21-32 mmol/L] 30 mmol/L (10/22/22 9:13 AM) TSH [0.358-3.740 mcIntlUnit/mL] 1.552 mc IntlUnit/mL (10/22/22 9:13 AM) eGFR Non-AA [>=60] 55 *LOW* (10/22/22 9:13 AM) eGFR AA [>=60] 55 *LOW* (10/22/22 9:13 AM) Chloride Level [98-107 mmol/L] 106 mmol/ L (10/22/22 9:13 AM) RDW-CV [11.5-14.5 %] 13.8 % (10/22/22 9:13 AM) Imm Gran Auto [0.0-0.9 %] 0.4 % (10/22/22 9:13 AM) Creatinine Level [0.55-1.02 mg/dL] 1.05 mg/dL *HI* (10/22/22 9:13 AM) Hep C Antibody [facility] [Negative] Negative 1 *NA* (10/22/22 9:13 AM) Eos, Auto [1.0-6.0 %] 6.7 % *HI* (10/22/22 9:13 AM) 1Result Comment: Test performed [place] [address] Social History Social History Type Response Tobacco Former tobacco user Tobacco Use:. Sex Female Patient Care team information Care Team Personnel Name: Jeanne Chan PERSON INVESTIGATOR Position: No Access Member Role: Informed Provider Address: Address: [id number] [place] [address] Care Team Related Persons Name: KIRILL TALBERT
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
--- OUTSIDE RECORDS SUMMARY | 2023-07-09 14:05 | XMS_ITS | Continuity of Care Document ---
Author Name Unknown Organization [facility] Address [address] [place] [address] Care Team Providers Care Jig And Fixture Builder Apprentice Name Role Phone Jeanne Chan Primary Care Physician Encounter [facility] Date(s): 07/02/23 - 07/02/23 [facility] [address] [place] [address] Encounter Diagnosis Constipation(Discharge Diagnosis) - 07/02/23 Constipation, unspecified(Final) - Other terminal computer operator (current) drug therapy(Final) - Discharge Disposition: Home w/ Home Health Care Attending Physician: Sergio Dominguez MD Admitting Physician: Sergio Dominguez MD Referring Physician: Ping Feldman PA-C Allergies, Adverse Reactions, Alerts Substance Reaction Severity Status penicillins Itching Unknown Active Assessment and Plan Extracted from: Title:ED Provider Note Author:Frandy Bear MD Date:07/02/23 Assessment/Plan 1.??Constipation??K59.00 Patient was unable to tolerate??enema here in the emergency department??caregiver would like to try this at home.?? Gave them a list of??constipation remedies??suggested that he start on Colace 100 mg twice a day and MiraLAX 17 g in 8 ounces of fluid daily??and to increase fiber intake.?? Primary care for caregiver has recommended Dulcolax discussed with him that this was more of a stimulant and can also be used if unable to go to the bathroom. Ordered: Discharge Patient, 07/02/23 15:11:00 EST, Home Independently, Constant Indicator ?? Orders: Enema Administration, 07/02/23 14:32:00 EST, Stop date 07/02/23 14:32:00 EST Patient Education Constipation, Adult Follow Up With When Contact Information Follow up with primary care provider Within 1 to 2 weeks Additional Instructions: Future Scheduled Tests Radiology* XR Hip 1 View w/ AP Pelvis Bilateral 10/01/22 Immunizations Given and Recorded Vaccine Date Status Refusal Reason SARS-CoV-2 (COVID-19) mRNA-1273 vaccine 08/18/20 R ecorded SARS-CoV-2 (COVID-19) mRNA-1273 vaccine 07/20/20 R ecorded influenza virus vaccine, inactivated 04/08/15 Cade rded pneumococcal 13-valent conjugate vaccine 06/26/14 Recorded Novel [id number], all formulation 05/31/09 Recorded zoster vaccine live 05/26/07 Recorded pneumococcal 23-polyvalent vaccine 05/26/01 Record ed Medications donepezil 10 mg oral tablet 10 mg = 1 tab, Oral, every day at bedtime, # 90 tab, 0 Refill(s) Start Date: 04/28/23 Status: Ordered furosemide 20 mg oral tablet 20 mg = 1 tab, Oral, Daily, 0 Refill(s) Start Date: 01/31/22 Status: Ordered metoprolol succinate 25 mg oral tablet, extended release 25 mg = 1 tab, Oral, Daily, 0 Refill(s) Start Date: 01/31/22 Status: Ordered omeprazole 20 mg oral delayed release tablet 20 mg = 1 tab, Oral, Daily, 0 Refill(s) Start Date: 01/31/22 Status: Ordered QUEtiapine 25 mg oral tablet 25 mg = 1 tab, Oral, every night at bedtime, # 30 tab, 0 Refill(s) Start Date: 04/28/23 Status: Ordered QUEtiapine 50 mg oral tablet 50 mg = 1 tab, Oral, every night at bedtime, # 90 tab, 0 Refill(s) Start Date: 04/28/23 Status: Ordered Remeron 15 mg oral tablet 15 mg = 1 tab, Oral, every day at bedtime, # 30 tab, 0 Refill(s) Start Date: 04/28/23 Status: Ordered risperiDONE 2 mg oral tablet 2 mg = 1 tab, Oral, BID, # 60 tab, 0 Refill(s) Start Date: 04/28/23 Status: Ordered Xarelto 20 mg oral tablet [...] Confirmed Active Results Laboratory List Name Date Basic Metabolic Panel 07/02/23 CBC w/ Diff 07/02/23 Automated Diff 07/02/23 Most recent to oldest [Reference Range]: 1 WBC [5.0-10.0 x10^3/mcL] 7.8 x10^3/mcL (07/02/23 2:35 PM) RBC [4.1-5.3 x10^6/mcL] 4.0 x10^6/mcL *LOW* (07/02/23 2:35 PM) Neutro Auto [40.0-75.0 %] 68.2 % (07/02/23 2:35 PM) Lymph Auto [20.0-50.0 %] 20.3 % (07/02/23 2:35 PM) Becker Auto [2.0-15.0 %] 7.0 % (07/02/23 2:35 PM) Basophil Auto [0.0-1.0 %] 0.8 % (07/02/23 2:35 PM) BUN [7-18 mg/dL] 13 mg/dL (07/02/23 2:35 PM) Glucose Level [74-106 mg/dL] 103 mg/dL (07/02/23 2:35 PM) Potassium Level [3.5-5.1 mmol/L] 3.5 mmo l/L (07/02/23 2:35 PM) MCV [80.0-96.0 fL] 95.0 fL (07/02/23 2:35 PM) MCHC [31.0-35.0 g/dL] 32.5 g/dL (07/02/23 2:35 PM) Sodium Level [136-145 mmol/L] 145 mmol/L (07/02/23 2:35 PM) Hct [37.0-47.0 %] 37.8 % (07/02/23 2:35 PM) Calcium Level [8.5-10.1 mg/dL] 8.4 mg/dL *LOW* (07/02/23 2:35 PM) MCH [26.0-32.0 pg] 30.9 pg (07/02/23 2:35 PM) Neutro Absolute 5.3 x10^3/mcL *NA* (07/02/23 2:35 PM) Hgb [12.0-16.0 g/dL] 12.3 g/dL (07/02/23 2:35 PM) Platelets [130-450 x10^3/mcL] 311 x10^3/ mcL (07/02/23 2:35 PM) CO2 [21-32 mmol/L] 33 mmol/L *HI* (07/02/23 2:35 PM) eGFR Non-AA [>=60] 68 (07/02/23 2:35 PM) eGFR AA [>=60] 68 (07/02/23 2:35 PM) Chloride Level [98-107 mmol/L] 109 mmol/ L *HI* (07/02/23 2:35 PM) RDW-CV [11.5-14.5 %] 14.3 % (07/02/23 2:35 PM) Imm Gran Auto [0.0-0.9 %] 0.4 % (07/02/23 2:35 PM) Creatinine Level [0.55-1.02 mg/dL] 0.89 mg/dL (07/02/23 2:35 PM) Eos, Auto [1.0-6.0 %] 3.3 % (07/02/23 2:35 PM) Vital Signs Most recent to oldest [Reference Range]: 1 2 3 Temperature Temporal Artery [36-38 Deg C] 36.8 Deg C (07/02/23 1:28 PM) 36.5 Deg C (07/02/23 11:29 AM) Peripheral Pulse Rate [60-100 bpm] 84 bpm (07/02/23 1:51 PM) 86 bpm (07/02/23 1:28 PM) 84 bpm (07/02/23 11:29 AM) Respiratory Rate [12-24 br/min] 15 br/min (07/02/23 1:51 PM) 16 br/min (07/02/23 1:28 PM) 18 br/min (07/02/23 11:29 AM) Blood Pressure [90-140/60-90 mmHg] 113/72mmHg (07/02/23 1:28 PM) 114/93mmHg (07/02/23 11: AM) Mean Arterial Pressure, Cuff [70-110 mmHg] 86 mmHg (07/02/23 1:28 PM) 100 mmHg (07/02/23 11: AM) Weight Estimated 90.72 kg (07/02/23 11: AM) Body Mass Index Estimated 34.33 kg/m2 (07/02/23 11:29 AM) Height/Length Estimated 162.56 cm (07/02/23 11:29 AM) Social History Social History Type Response Tobacco Former tobacco user Tobacco Use:. Sex Female Hospital Discharge Instructions Patient Education 07/02/2023 14:12:02 Constipation, Adult Constipation, Adult Constipation is when a person has fewer than three bowel movements in a week, has difficulty havinga bowel movement, or has stools (feces) that are dry, hard, or larger than normal. Constipation maybe caused by an underlying condition. It may become worse with age if a person takes certain medicines and does not take in enough fluids. Follow these instructions at home: Eating and drinking ??? Eat foods that have a lot of fiber, such as beans, whole grains, and fresh fruits and vegetables. ??? Limit foods that are low in fiber and high in fat and processed sugars, such as fried or sweet foods. These include cape verdean fries, hamburgers, cookies, candies, and soda. ??? Drink enough fluid to keep your urine pale yellow. General instructions ??? Exercise regularly or as told by your health care provider. Try to do 150 minutes of moderate exercise each week. ??? Use the bathroom when you have the urge to go. Do not hold it in. ??? Take hzll-cav-owyvipv and prescription medicines only as told by your health care provider. This includes any fiber supplements. ??? During bowel movements: ??? Practice deep breathing while relaxing the lower abdomen. ??? Practice pelvic floor relaxation. ??? Watch your condition for any changes. Let your health care provider know about them. ??? Keep all follow-up visits as told by your health care provider. This is important. Contact a health care provider if: ??? You have pain that gets worse. ??? You have a fever. ??? You do not have a bowel movement after 4 days. ??? You vomit. ??? You are not hungry or you lose weight. ??? You are bleeding from the opening between the buttocks (anus). ??? You have thin, pencil-like stools. Get help right away if: ??? You have a fever and your symptoms suddenly get worse. ??? You leak stool or have blood in your stool. ??? Your abdomen is bloated. ??? You have severe pain in your abdomen. ??? You feel dizzy or you faint. Summary ??? Constipation is when a person has fewer than three bowel movements in a week, has difficulty having a bowel movement, or has stools (feces) that are dry, hard, or larger than normal. ??? Eat foods that have a lot of fiber, such as beans, whole grains, and fresh fruits and vegetables. ??? Drink enough fluid to keep your urine pale yellow. ??? Take zyzq-lsh-lhvnovo and prescription medicines only as told by your health care provider. This includes any fiber supplements. This information is not intended to replace advice given to you by your health care provider. Make sure you discuss any questions you have with your health care provider. Document Revised: 03/29/2020 Document Reviewed: 03/29/2020 [employer] Patient Education ?? 2022 [employer]. Follow Up Care 07/02/2023 11:29:18 With:Follow up with primary care provider Address: When:1 to 2 weeks Physician Emergency department Note * Jenni Bear MD: PERFORM Event Display: ED Note Physician Authored Date: [id number] TREY ESPINO :1945 Age:77 years Sex:Female Visit Date:07/02/2023 Primary Care Physician: Jeanne Chan NP Basic Information Time Seen: Jenni Bear MD / 07/02/2023 13:38 Chief Complaint Pt c/o consti[pation. ??Last BM 4 days ago History Of Present Illness: Patient was seen at [facility] primary care office??this morning and was sent here for??disimpaction??per caregiver. ??Patient with Alzheimer's disease and unable to give history.?? Patient has had more problems with constipation primary care office has been??prescribing Dulcolax. ??Caregiver does not think that patient is on any stool softener or on??MiraLAX at this point.?? No fevers nochills no abdominal pain Review of Systems: see hpi for ros Physical Exam Vitals & Measurements T:??36.8?C ??(Temporal Artery)?? HR:??84??(Peripheral)?? RR:??15?? BP:??113/72?? SpO2:??97%?? HT:??162.56??cm?? WT:??90.72??kg??(Estimated)?? BMI:??34.33?? O2 Therapy:??Room air?? General: Alert and oriented, well nourished,?No??acute distress Eye: PER,?Normal??conjunctiva, No scleral icterus HENT: Normocephalic?Normal?? hearing?? Respiratory:??Respiration??no distress??no increased work of breathing Heart:??Capillary refill less than 2 seconds??no??edema Chest: wall excursion wnl no abnormal movements no obvious deformities Musculoskeletal:?Normal?? range of motion and strength,?No??tenderness,??positive diffuse??lower extremity??swelling Abdomen:??Nontender nondistended??no organomegaly Rectal??normal tone??brown stool??moderately soft present??no masses Skin: Skin is warm, dry and pink,?No??rashes,?No??lesions Neurologic: Awake, alert and oriented X4 Psychiatric: Cooperative, appropriate mood and affect Medical Decision Making: For MDM please see under assessment and plan Procedure No Qualifying Data Assessment/Plan 1.??Constipation??K59.00 Patient was unable to tolerate??enema here in the emergency department??caregiver would like to trythis at home.?? Gave them a list of??constipation remedies??suggested that he start on Colace 100 mg twice a day and MiraLAX 17 g in 8 ounces of fluid daily??and to increase fiber intake.?? Primary care for caregiver has recommended Dulcolax discussed with him that this was more of a stimulant and can also be used if unable to go to the bathroom. Ordered: Discharge Patient, 07/02/23 15:11:00 EST, Home Independently, Constant Indicator ?? Orders: Enema Administration, 07/02/23 14:32:00 EST, Stop date 07/02/23 14:32:00 EST Patient Education Constipation, Adult Follow Up With When Contact Information Follow up with primary care provider Within 1 to 2 weeks Additional Instructions: Medication Reconciliation Unchanged donepezil (donepezil 10 mg oral tablet)1 tab Oral (given by mouth) every night at bedtime. ?? furosemide (furosemide 20 mg oral tablet)1 tab Oral (given by mouth) every day. ?? metoprolol (metoprolol succinate 25 mg oral tablet, extended release)1 tab Oral (given by mouth) every day. ?? mirtazapine (Remeron 15 mg oral tablet)1 tab Oral (given by mouth) every night at bedtime. ?? omeprazole (omeprazole 20 mg oral delayed release tablet)1 tab Oral (given by mouth) every day. ?? QUEtiapine (QUEtiapine 25 mg oral tablet)1 tab Oral (given by mouth) every night at bedtime. ?? QUEtiapine (QUEtiapine 50 mg oral tablet)1 tab Oral (given by mouth) every night at bedtime. ?? risperiDONE (risperiDONE 2 mg oral tablet)1 tab Oral (given by mouth) 2 times a day. ?? rivaroxaban (Xarelto 20 mg oral [...] and Differential?? LATEST RESULTS?? HISTORICAL RESULTS?? WBC?? 07/02/23 14:35?? 7.8?? 05/13/23?? 7.2?? RBC?? 07/02/23 14:35?? 4.0 ??Low?? 05/13/23?? 4.5?? Hgb?? 07/02/23 14:35?? 12.3?? 05/13/23?? 13.8?? Hct?? 07/02/23 14:35?? 37.8?? 05/13/23?? 43.0?? MCV?? 07/02/23 14:35?? 95.0?? 05/13/23?? 94.9?? MCH?? 07/02/23 14:35?? 30.9?? 05/13/23?? 30.5?? MCHC?? 07/02/23 14:35?? 32.5?? 05/13/23?? 32.1?? RDW-CV?? 07/02/23 14:35?? 14.3?? 05/13/23?? 13.8?? Platelets?? 07/02/23 14:35?? 311?? 05/13/23?? 349?? Neutro Auto?? 07/02/23 14:35?? 68.2?? 05/13/23?? 58.9?? Lymph Auto?? 07/02/23 14:35?? 20.3?? 05/13/23?? 27.8?? Becker Auto?? 07/02/23 14:35?? 7.0?? 05/13/23?? 7.9?? Eos, Auto?? 07/02/23 14:35?? 3.3?? 05/13/23?? 4.0?? Basophil Auto?? 07/02/23 14:35?? 0.8?? 05/13/23?? 1.1 ??High?? Imm Gran Auto?? 07/02/23 14:35?? 0.4?? 05/13/23?? 0.3?? Neutro Absolute?? 07/02/23 14:35?? 5.3?? 05/13/23?? 4.3? Routine Chemistry?? LATEST RESULTS?? HISTORICAL RESULTS?? Sodium Level?? 07/02/23 14:35?? 145?? 05/13/23?? 142?? Potassium Level?? 07/02/23 14:35?? 3.5?? 05/13/23?? 3.3 ??Low?? Chloride Level?? 07/02/23 14:35?? 109 ??High?? 05/13/23?? 104?? CO2?? 07/02/23 14:35?? 33 ??High?? 05/13/23?? 31?? BUN?? 07/02/23 14:35?? 13?? 05/13/23?? 15?? Glucose Level?? 07/02/23 14:35?? 103?? 05/13/23?? 119 ??High?? Creatinine Level?? 07/02/23 14:35?? 0.89?? 05/13/23?? 0.94?? eGFR AA?? 07/02/23 14:35?? 68?? 05/13/23?? 63?? eGFR Non-AA?? 07/02/23 14:35?? 68?? 05/13/23?? 63?? Calcium Level?? 07/02/23 14:35?? 8.4 ??Low?? 05/13/23?? 9.1? Electronically Signed on 07/02/23 03:18 PM Jenni Bear MD Emergency department Discharge instructions * Jenni Bear MD: PERFORM Event Display: ED Discharge Information Authored Date: [id number] TREY ESPINO :1945 Age:77 years Sex:Female Visit Date:07/02/2023 Primary Care Physician: Jeanne Chan IN FLIGHT REFUELING MANAGER Discharge Instructions We would like to thank you for allowing us to assist you with your healthcare needs. The following includes patient education materials and information regarding your injury/illness. Diagnosis from Today's Visit Constipation Discharge Vitals Temperature??(Temporal Artery) 98.2 ??F (36.8 ??C) Heart Rate??(Peripheral) 84 Respiratory Rate?? 15 Blood Pressure?? 113/72?? Height?? 64.00 in (162.56 cm) Weight??(Estimated) 200.04 lb (90.72 kg) BMI?? 34.33 Allergies penicillins??(Itching) What to Do Next Instructions from Your Care Team Please do your enema??when you get home.?? Start taking Colace (docusate) 100 mg twice a day??and MiraLAX 17 g in 8 ounces of fluid daily??also please increase your??fiber intake.?? You Need to Schedule the Following Appointments Follow Up with??Follow up with primary care provider When:??Within 1 to 2 weeks You were treated today on an emergency [...] Emergency Department. Medications What How Much When Instructions Next Dose Unchanged donepezil (donepezil 10 mg oral tablet) 1 tab Oral (given by mouth) Every night at bedtime Unchanged furosemide (furosemide 20 mg oral tablet) 1 tab Oral (given by mouth) Every day Unchanged metoprolol (metoprolol succinate 25 mg oral tablet, extended release) 1 tab Oral (given by mouth) Every day Unchanged mirtazapine (Remeron 15 mg oral tablet) 1 tab Oral (given by mouth) Every night at bedtime Unchanged omeprazole (omeprazole 20 mg oral delayed release tablet) 1 tab Oral (given by mouth) Every day Unchanged QUEtiapine (QUEtiapine 25 mg oral tablet) 1 tab Oral (given by mouth) Every night at bedtime Unchanged QUEtiapine (QUEtiapine 50 mg oral tablet) 1 tab Oral (given by mouth) Every night at bedtime Unchanged risperiDONE (risperiDONE 2 mg oral tablet) 1 tab Oral (given by mouth) 2 times a day Unchanged rivaroxaban (Xarelto 20 mg oral tablet) 1 tab Oral (given by mouth) Every evening Education Materials Constipation, Adult Constipation is when a person has fewer than three bowel movements in a week, has difficulty havinga bowel movement, or has stools (feces) that are dry, hard, or larger than normal. Constipation maybe caused by an underlying condition. It may become worse with age if a person takes certain medicines and does not take in enough fluids. Follow these instructions at home: Eating and drinking ? Eat foods that have a lot of fiber, such as beans, whole grains, and fresh fruits and vegetables. ? Limit foods that are low in fiber and high in fat and processed sugars, such as fried or sweet foods. These include cape verdean fries, hamburgers, cookies, candies, and soda. ? Drink enough fluid to keep your urine pale yellow. General instructions ? Exercise regularly or as told by your health care provider. Try to do 150 minutes of moderate exercise each week. ? Use the bathroom when you have the urge to go. Do not hold it in. ? Take tfca-hwf-mbweute and prescription medicines only as told by your health care provider. This includes any fiber supplements. ? During bowel movements: ? Practice deep breathing while relaxing the lower abdomen. ? Practice pelvic floor relaxation. ? Watch your condition for any changes. Let your health care provider know about them. ? Keep all follow-up visits as told by your health care provider. This is important. Contact a health care provider if: ? You have pain that gets worse. ? You have a fever. ? You do not have a bowel movement after 4 days. ? You vomit. ? You are not hungry or you lose weight. ? You are bleeding from the opening between the buttocks (anus). ? You have thin, pencil-like stools. Get help right away if: ? You have a fever and your symptoms suddenly get worse. ? You leak stool or have blood in your stool. ? Your abdomen is bloated. ? You have severe pain in your abdomen. ? You feel dizzy or you faint. Summary ? Constipation is when a person has fewer than three bowel movements in a week, has difficulty havinga bowel movement, or has stools (feces) that are dry, hard, or larger than normal. ? Eat foods that have a lot of fiber, such as beans, whole grains, and fresh fruits and vegetables. ? Drink enough fluid to keep your urine pale yellow. ? Take eong-ehu-lasvekn and prescription medicines only as told by your health care provider. This includes any fiber supplements. This information is not intended to replace advice given to you by your health care provider. Make sure you discuss any questions you have with your health care provider. Document Revised: 03/29/2020 Document Reviewed: 03/29/2020 [employer] Patient Education ?? 2022 [employer]. Tests Performed Lab Test Name Test Result Date/Time WBC 7.8 x10^3/mcL 07/02/2023 14:35 EST RBC 4.0 x10^6/mcL 07/02/2023 14:35 EST Hgb 12.3 g/dL 07/02/2023 14:35 EST Hct 37.8 % 07/02/2023 14:35 EST MCV 95.0 fL 07/02/2023 14:35 EST MCH 30.9 pg 07/02/2023 14:35 EST MCHC 32.5 g/dL 07/02/2023 14:35 EST RDW-CV 14.3 % 07/02/2023 14:35 EST Platelets 311 x10^3/mcL 07/02/2023 14:35 EST Neutro Auto 68.2 % 07/02/2023 14:35 EST Lymph Auto 20.3 % 07/02/2023 14:35 EST Becker Auto 7.0 % 07/02/2023 14:35 EST Eos, Auto 3.3 % 07/02/2023 14:35 EST Basophil Auto 0.8 % 07/02/2023 14:35 EST Imm Gran Auto 0.4 % 07/02/2023 14:35 EST Neutro Absolute 5.3 x10^3/mcL 07/02/2023 14:35 EST Sodium Level 145 mmol/L 07/02/2023 14:35 EST Potassium Level 3.5 mmol/L 07/02/2023 14:35 EST Chloride Level 109 mmol/L 07/02/2023 14:35 EST CO2 33 mmol/L 07/02/2023 14:35 EST BUN 13 mg/dL 07/02/2023 14:35 EST Glucose Level 103 mg/dL 07/02/2023 14:35 EST Creatinine Level 0.89 mg/dL 07/02/2023 14:35 EST eGFR AA 68 07/02/2023 14:35 EST eGFR Non-AA 68 07/02/2023 14:35 EST Calcium Level 8.4 mg/dL 07/02/2023 14:35 EST Patient/Shovel Engineer Signature Patient Name:TREY ESPINO Josue I have received this information and my questions have been answered. Patient/Shovel Engineer Name: Patient/Shovel Engineer Signature: Relationship to Patient: Witness Name/Signature: Date: Electronically Signed on: 07/02/2023 15:14 ESTSigned by:AMS Discharge summary * Mario Rodriguez: PERFORM Event Display: Discharge Summary Authored Date: [id number] Patient Care team information Care Team Personnel Name: Jeanne Chan NP Position: No Access Member Role: Informed Provider Address: Address: [address] Care Team Related Persons Name: TERRI LOYD Name: KIRILL WALSH Address: Home [address] [place], [place] [id number]
--- OUTSIDE RECORDS SUMMARY | 2023-07-09 14:05 | XMS_ITS | Continuity of Care Document ---
Author Name Unknown Organization [facility] Address [address] [place] [address] Care Team Providers Care Workforce Development Specialist Name Role Phone Jeanne Chan Primary Care Physician [phone] Encounter [facility] Date(s): 11/20/22 - 11/20/[address] [phone] Discharge Disposition: Home or Self Care Attending Physician: Francisco Carreon MD Admitting Physician: Francisco Carreon MD Referring Physician: Francisco Carreon MD Allergies, Adverse Reactions, Alerts Substance Reaction [...] pneumococcal 13-valent conjugate vaccine 06/26/14 Recorded Novel [id number], all formulation 05/31/09 Recorded zoster vaccine live [...] labeling, # 21 tab, 0 Refill(s), Pharmacy: [id number], 163, cm, 04/06/22 12:37:00 EST, Height/Length [...] disease) Confirmed Active Sleep apnea Confirmed Active Vital Signs Most recent to oldest [Reference Range]: 1 2 Temperature Temporal Artery [36-38 Deg C ] 36.5 Deg C (11/20/22 10:55 AM) 36.5 Deg C (11/20/22 9:56 AM) Peripheral Pulse Rate [60-100 bpm] 82 bp m (11/20/22 10:55 AM) 84 bpm (11/20/22 9:56 AM) Respiratory Rate [12-24 br/min] 20 br/mi n (11/20/22 10:55 AM) 20 br/min (11/20/22 9:56 AM) Blood Pressure [90-140/60-90 mmHg] 141/7 3mmHg *HI* (11/20/22 10:55 AM) 146/70mmHg *HI* (11/20/22 9:56 AM) Social History Social History Type Response Tobacco Former tobacco user Tobacco Use:. Sex Female Anesthesiology Progress note * Francisco Carreon MD: PERFORM Event Display: Anesthesiology Progress Note Authored Date: [id number] TREY ESPINO :1945 Age:77 years Sex:Female Visit Date:11/20/2022 Primary Care Physician: Jeanne Chan NP hip Injection right with ultrasound guidance Images After??the procedure was explained to the patient's guardian??and these were excepted and consent was signed patient was??taken to preop room her right groin was sterilely prepped and draped ultrasound was used to visualize the junction between the neck and head of the femur skin and deeper tissueswere anesthetized with 1% lidocaine.?? A 4 inch 20-gauge regional block needle was advanced with ultrasound guidance to the junction of the neck and head of the femur once the needle was at this junction 7 cc of 0.25% bupivacaine and 80 mg of Depo-Medrol was injected under ultrasound visualization??once injection was completed the needle was removed pressure held for a few moments patient tolerated the block well Electronically Signed on 11/20/22 10:57 AM Francisco Carreon MD Patient Care team information Care Team Personnel Name: Jeanne Chan NP Position: No Access Member Role: Informed Provider Address: Address: [id number] [place] [address] Care Team Related Persons Name: TERRI LOYD Name: KIRILL WALSH Address: Home [address] [phone]
--- OUTSIDE RECORDS SUMMARY | 2023-07-09 14:05 | XMS_ITS | Continuity of Care Document ---
Author Name Unknown Organization [facility] Address [address] [place] [address] Care Team Providers Care Physician Primary Care Sports Medicine Name Role Phone Jeanne Chan Primary Care Physician [phone] Encounter [facility] Date(s): 04/06/22 - 04/06/[address] [address] Encounter Diagnosis Upper respiratory disease(Discharge Diagnosis) - 04/06/22 Reactive airway disease with wheezing(Discharge Diagnosis) - 04/06/22 Discharge Disposition: Home or Self Care Attending Physician: Hilary Wong MD Admitting Physician: Hilary Wong MD Allergies, Adverse Reactions, Alerts Substance Reaction Severity Status penicillins Itching Unknown Active Functional Status 04/06/22 Family Member Travel History No recent t ravel Recent Travel History No recent travel Other exposure to Infectious Disease Non e Immunizations Given and Recorded Vaccine Date Status Refusal Reason SARS-CoV-2 (COVID-19) mRNA-1273 vaccine 08/18/20 R ecorded SARS-CoV-2 (COVID-19) mRNA-1273 vaccine 07/20/20 R ecorded influenza virus vaccine, inactivated 04/08/15 Cade rded pneumococcal 13-valent conjugate vaccine 06/26/14 Recorded Novel [id number], all formulation 05/31/09 Recorded zoster vaccine live [...] labeling, # 21 tab, 0 Refill(s), Pharmacy: [id number], 163, cm, 04/06/22 12:37:00 EST, Height/Length [...] Confirmed Active Results Laboratory List Name Date SARS-CoV-2 (COVID-19) RNA (ID Now) 04/06 Most recent to oldest [Reference Range]: 1 SARS-CoV-2 (COVID-19) RNA (ID Now) [Not Detected] Not Detected (04/06/22 12:50 PM) Vital Signs Most recent to oldest [Reference Range]: 1 Temperature Temporal Artery [36-38 Deg C ] 36.7 Deg C (04/06/22 12:23 PM) Peripheral Pulse Rate [60-100 bpm] 78 bp m (04/06/22 12:23 PM) Respiratory Rate [12-24 br/min] 20 br/mi n (04/06/22 12:23 PM) Blood Pressure [90-140/60-90 mmHg] 141/9 0mmHg *HI* (04/06/22 12:23 PM) Weight Dosing 68.00 kg (04/06/22 12:37 PM) Weight Estimated 68.00 kg (04/06/22 12:23 PM) Height/Length Dosing 163.000 cm (04/06/22 12:37 PM) Height/Length Estimated 163.000 cm (04/06/22 12:23 PM) Social History Social History Type Response Tobacco Former tobacco user Tobacco Use:. Sex Female Hospital Discharge Instructions Patient Education 04/06/2022 13:05:23 Asthma, Adult Asthma, Adult Asthma is a long-term (chronic) condition that causes recurrent episodes in which the airways become tight and narrow. The airways are the passages that lead from the nose and mouth down into the lungs. Asthma episodes, also called asthma attacks, can cause coughing, wheezing, shortness of breath, and chest pain. The airways can also fill with mucus. During an attack, it can be difficult to breathe. Asthma attacks can range from minor to life threatening. Asthma cannot be cured, but medicines and lifestyle changes can help control it and treat acute attacks. What are the causes? This condition is believed to be caused by inherited (genetic) and environmental factors, but its exact cause is not known. There are many things that can bring on an asthma attack or make asthma symptoms worse (triggers). Asthma triggers are different for each person. Common triggers include: ??? Mold. ??? Dust. ??? Cigarette smoke. ??? Cockroaches. ??? Things that can cause allergy symptoms (allergens), such as animal dander or pollen from trees or grass. ??? Air pollutants such as household steamtable attendant railroad, wood smoke, smog, or chemical odors. ??? Cold air, weather changes, and winds (which increase molds and pollen in the air). ??? Strong emotional expressions such as crying or laughing hard. ??? Stress. ??? Certain medicines (such as aspirin) or types of medicines (such as beta-blockers). ??? Sulfites in foods and drinks. Foods and drinks that may contain sulfites include dried fruit, potato chips, and sparkling grape juice. ??? Infections or inflammatory conditions such as the flu, a cold, or inflammation of the nasal membranes (rhinitis). ??? Gastroesophageal reflux disease (GERD). ??? Exercise or strenuous activity. What are the signs or symptoms? Symptoms of this condition may occur right after asthma is triggered or many hours later. Symptoms include: ??? Wheezing. This can sound like whistling when you breathe. ??? Excessive nighttime or early childhood education specialist coughing. ??? Frequent or severe coughing with a common cold. ??? Chest tightness. ??? Shortness of breath. ??? Tiredness (fatigue) with minimal activity. How is this diagnosed? This condition is diagnosed based on: ??? Your medical history. ??? A physical exam. ??? Tests, which may include: ??? Lung function studies and pulmonary studies (spirometry). These tests can evaluate the flow of air in your lungs. ??? Allergy tests. ??? Imaging tests, such as X-rays. How is this treated? There is no cure for this condition, but treatment can help control your symptoms. Treatment for asthma usually involves: ??? Identifying and avoiding your asthma triggers. ??? Using medicines to control your symptoms. Generally, two types of medicines are used to treat asthma: ??? Controller medicines. These help prevent asthma symptoms from occurring. They are usually takenevery day. ??? Fast-acting reliever or rescue medicines. These quickly relieve asthma symptoms by widening thenarrow and tight airways. They are used as needed and provide short-term relief. ??? Using supplemental oxygen. This may be needed during a severe episode. ??? Using other medicines, such as: ??? Allergy medicines, such as antihistamines, if your asthma attacks are triggered by allergens. ??? Immune medicines (immunomodulators). These are medicines that help control the immune system. ??? Creating an asthma action plan. An asthma action plan is a written plan for managing and treating your asthma attacks. This plan includes: ??? A list of your asthma triggers and how to avoid them. ??? Information about when medicines should be taken and when their dosage should be changed. ??? Instructions about using a device called a peak flow meter. A peak flow meter measures how wellthe lungs are working and the severity of your asthma. It helps you monitor your condition. Follow these instructions at home: Controlling your home environment Control your home environment in the following ways to help avoid triggers and prevent asthma attacks: ??? Change your heating and air conditioning filter regularly. ??? Limit your use of fireplaces and wood stoves. ??? Get rid of pests (such as roaches and mice) and their droppings. ??? Throw away plants if you see mold on them. ??? Clean floors and dust surfaces regularly. Use unscented cleaning products. ??? Try to have someone else vacuum for you regularly. Stay out of rooms while they are being vacuumed and for a short while afterward. If you vacuum, use a dust mask from a hardware store, a double-layered or microfilter vacuum cleaners bag, or a vacuum cleaners with a HEPA filter. ??? Replace carpet with wood, tile, or vinyl annamaria. Carpet can trap dander and dust. ??? Use allergy-proof pillows, mattress covers, and box spring covers. ??? Keep your bedroom a trigger-free room. ??? Avoid pets and keep windows closed when allergens are in the air. ??? Wash beddings every week in hot water and dry them in a dryer. ??? Use blankets that are made of polyester or cotton. ??? Clean bathrooms and corrie with bleach. If possible, have someone repaint the servin in these rooms with mold-resistant paint. Stay out of the rooms that are being cleaned and painted. ??? Wash your hands often with soap and water. If soap and water are not available, use hand senior mechanical development engineer. ??? Do not allow anyone to smoke in your home. General instructions ??? Take hxnh-ugx-gcdzddj and prescription medicines only as told by your health care provider. ??? Speak with your health care provider if you have questions about how or when to take the medicines. ??? Make note if you are requiring more frequent dosages. ??? Do not use any products that contain nicotine or tobacco, such as cigarettes and e-cigarettes. If you need help quitting, ask your health care provider. Also, avoid being exposed to secondhand smoke. ??? Use a peak flow meter as told by your health care provider. Record and keep track of the readings. ??? Understand and use the asthma action plan to help minimize, or stop an asthma attack, without needing to seek medical care. ??? Make sure you stay up to date on your yearly vaccinations as told by your health care provider.This may include vaccines for the flu and pneumonia. ??? Avoid outdoor activities when allergen counts are high and when air quality is low. ??? Wear a ski mask that covers your nose and mouth during outdoor winter activities. Exercise indoors on cold days if you can. ??? Warm up before exercising, and take time for a cool-down period after exercise. ??? Keep all follow-up visits as told by your health care provider. This is important. Where to find more information ??? For information about asthma, turn to the Centers for Disease Control and Prevention at www.cdc.gov/asthma/faqs ??? For air quality information, turn to AirNow at airnow.gov Contact a health care provider if: ??? You have wheezing, shortness of breath, or a cough even while you are taking medicine to prevent attacks. ??? The mucus you cough up (sputum) is thicker than usual. ??? Your sputum changes from clear or white to yellow, green, win, or bloody. ??? Your medicines are causing side effects, such as a rash, itching, swelling, or trouble breathing. ??? You need to use a reliever medicine more than 2???3 times a week. ??? Your peak flow reading is still at 50???79% of your personal best after following your action plan for 1 hour. ??? You have a fever. Get help right away if: ??? You are getting worse and do not respond to treatment during an asthma attack. ??? You are short of breath when at rest or when doing very little physical activity. ??? You have difficulty eating, drinking, or talking. ??? You have chest pain or tightness. ??? You develop a fast heartbeat or palpitations. ??? You have a bluish color to your lips or fingernails. ??? You are light-headed or dizzy, or you faint. ??? Your peak flow reading is less than 50% of your personal best. ??? You feel too tired to breathe normally. Summary ??? Asthma is a long-term (chronic) condition that causes recurrent episodes in which the airways become tight and narrow. These episodes can cause coughing, wheezing, shortness of breath, and chest pain. ??? Asthma cannot be cured, but medicines and lifestyle changes can help control it and treat acuteattacks. ??? Make sure you understand how to avoid triggers and how and when to use your medicines. ??? Asthma attacks can range from minor to life threatening. Get help right away if you have an asthma attack and do not respond to treatment with your usual rescue medicines. This information is not intended to replace advice given to you by your health care provider. Make sure you discuss any questions you have with your health care provider. Document Revised: 02/09/2021 Document Reviewed: 09/13/2020 [employer] Patient Education ?? 2021 [employer]. Follow Up Care 04/06/2022 12:23:49 With:Follow up with primary care provider Address: When:2 to 4 days Physician Emergency department Note * Hilary Wong MD: PERFORM Event Display: ED Note Physician Authored Date: [id number] TREY ESPINO :1945 Age:76 years Sex:Female Visit Date:04/06/2022 Primary Care Physician: Jeanne Chan NP Basic Information Time Seen: Hilary Wong MD / 04/06/2022 12:33 Chief Complaint cough, achey legs, wheezing History Of Present Illness: 76-year-old lady with history of Alzheimer's disease, atrial fibrillation, degenerative joint disease, GERD, hyperlipidemia, sleep apnea, valvular heart disease,??lives in [facility], presents??to the emergency department c/o cough, congestion, and wheezing in the past 5 days. Pt also with sob on exertion. No chest pain, no f/c. No one around her with similar symptoms. She is vaccinated against Covid19. ??She said she has a history of asthma??and had??some while living in [place] but she says she has been living up here for at least 10 years and has not had a problem with her asthma. ??She has not??required any albuterol inhaler available time. Review of Systems: In addition to the ROS embedded in the HPI, the patient has no Const: fever, chills,?? CV: chest pain or palpitations Pulm:??As above GI: n/v/c/d or abd pain Physical Exam Vitals & Measurements T:??36.7?C ??(Temporal Artery)?? HR:??78??(Peripheral)?? RR:??20?? BP:??141/90?? SpO2:??98%?? HT:??163.000??cm?? WT:??68.00??kg??(Estimated)?? Pain Score:??4?? General: A&Ox3, Calm, no apparent distress, well developed, pleasant and cooperative ?? HEENT: Head ATNC. Eyes: EM. Extraocular Mobility: intact and symmetrical. Conjunctiva: non-injected, anicteric, no discharge. Oral Cavity: moist. Neck: no masses, no crepitus. Lymph Nodes: no cervical lymphadenopathy? Respiratory: resp effort - no dyspnea, speaking in full sentences. ??Wheezing throughout both lungs, worse on the right. ?? CV: RRR, normal S1, normal S2, no murmurs, rubs or gallops ?? Abdomen : soft, non-tender, non-distended, no rebound or guarding, no hepatosplenomegaly ?? Extremities: no le swelling, warm and well-perfused, no cyanosis, capillary refill <2 seconds? Skin: no rash, no lesions, no bruising? Neuro: normal tone, normal strength in all 4 extremities, sensation intact?? Medical Decision Makin-year-old lady with history of Alzheimer's disease, atrial fibrillation, degenerative joint disease, GERD, hyperlipidemia, sleep apnea, valvular heart disease,??lives in [facility], presents??to the emergency department c/o cough, congestion, and wheezing in the past 5 days. Patient is well nontoxic-appearing. ??She speaking in full sentences.?? Wheezing heard throughout both lungs, right more than left.?? Her presentation is concerning for??asthma exacerbation triggeredby URI. CXR with no consolidation Procedure No Qualifying Data Assessment/Plan 1.??Upper respiratory disease??J39.9 Covid neg, presentation not c/w the flu with no fever Ordered: Medrol 4 mg oral tablet, 1 packets, Oral, Daily, as directed on package labeling, # 21 tab, 0 Refill(s), Pharmacy: [id number], 163, cm, 04/06/22 12:37:00 EST, Height/Length Dosing, 68, kg, 04/06/22 12:37:00 EST, Weight Dosing Discharge Patient, 04/06/22 14:05:00 EST, Constant Indicator ?? 2.??Reactive airway disease with wheezing??J45.909 wheezing improved with nebs, will d/c pt on medrol dose pack and Abluterol inhaler Ordered: Medrol 4 mg oral tablet, 1 packets, Oral, Daily, as directed on package labeling, # 21 tab, 0 Refill(s), Pharmacy: [facility], 163, cm, 04/06/22 12:37:00 EST, Height/Length Dosing, 68, kg, 04/06/22 12:37:00 EST, Weight Dosing Discharge Patient, 04/06/22 14:05:00 EST, Constant Indicator ?? Orders: albuterol 90 mcg/inh aerosol inhaler, 2 inh, Inhale, Aerosol, Once, First Dose: 04/06/22 14:03:00 EST, Stop Date: 04/06/22 14:03:00 EST, Physician Stop, STAT Patient Education Asthma, Adult Follow Up With When Contact Information Follow up with primary care provider Within 2 to 4 days Additional Instructions: Medication Reconciliation New Prescription methylPREDNISolone (Medrol 4 mg oral tablet)1 packets Oral (given by mouth) every day for 6 Days. as directed on package labeling. Refills: 0. ?? Unchanged citalopram (citalopram 10 mg oral tablet)1 tab Oral (given by mouth) every day. ?? furosemide (furosemide 20 mg oral tablet)1 tab Oral (given by mouth) every day. ?? gabapentin (gabapentin 300 mg oral capsule)1 Capsules Oral (given by mouth) 2 times a day. ?? metoprolol (metoprolol succinate 25 mg [...] Historical No qualifying data Medication Administration Given !-DuoNeb, 3 mL, NEB predniSONE, 10 mg, Oral Allergies penicillins??(Itching) Social History Alcohol Never Electronic Cigarette/Vaping Electronic Cigarette Use: Never. Tobacco Former tobacco user Tobacco Use:. Lab Results Infectious Disease?? LATEST RESULTS?? SARS-CoV-2 (COVID-19) RNA (ID Now)?? 04/06/22 12:50?? Not Detected? Electronically Signed on 04/06/22 02:58 PM Hilary Wong MD Emergency department Discharge instructions * Hilary Wong MD: PERFORM Event Display: ED Discharge Information Authored Date: [id number] RTEY ESPINO :1945 Age:76 years Sex:Female Visit Date:04/06/2022 Primary Care Physician: Jeanne Chan HIDE SORTER Discharge Instructions We would like to thank you for allowing us to assist you with your healthcare needs. The following includes patient education materials and information regarding your injury/illness. Diagnosis from Today's Visit Upper respiratory disease Reactive airway disease with wheezing Discharge Vitals Temperature??(Temporal Artery) 98.1 ??F (36.7 ??C) Heart Rate??(Peripheral) 78 Respiratory Rate?? 20 Blood Pressure?? 141/90?? Height?? 64.17 in (163.000 cm) Weight??(Estimated) 149.94 lb (68.00 kg) Allergies penicillins??(Itching) What to Do Next Instructions from Your Care Team Please take Medrol dose pack for 6 days as directed on the package. Use Albuterol inhaler every 4 hours. Drink plenty of fluids. Follow up with your primary care provider for reevaluation in a few days. Return to the ED for any new or worsening symptoms. You Need to Schedule the Following Appointments Follow Up with??Follow up with primary care provider When:??Within 2 to 4 days You were treated today on an emergency [...] How Much When Why Instructions Next Dose New methylPREDNISolone (Medrol 4 mg oral tablet) 1 packets Oral (given by mouth) Every day Upper respiratory disease Reactive airway disease with wheezing Duration: 6 Days as directed on package labeling ?? Pickup at [facility] Unchanged citalopram (citalopram 10 mg oral tablet) 1 tab Oral (given by mouth) Every day Unchanged furosemide (furosemide 20 mg oral tablet) 1 tab Oral (given by mouth) Every day Unchanged gabapentin (gabapentin 300 mg oral capsule) 1 Capsules Oral (given by mouth) 2 times a day Unchanged metoprolol (metoprolol succinate 25 mg [...] tab Oral (given by mouth) Every evening Pharmacy Information [facility]: [address], [place] [id number] [phone] Education Materials Asthma, Adult Asthma is a long-term (chronic) condition that causes recurrent episodes in which the airways become tight and narrow. The airways are the passages that lead from the nose and mouth down into the lungs. Asthma episodes, also called asthma attacks, can cause coughing, wheezing, shortness of breath, and chest pain. The airways can also fill with mucus. During an attack, it can be difficult to breathe. Asthma attacks can range from minor to life threatening. Asthma cannot be cured, but medicines and lifestyle changes can help control it and treat acute attacks. What are the causes? This condition is believed to be caused by inherited (genetic) and environmental factors, but its exact cause is not known. There are many things that can bring on an asthma attack or make asthma symptoms worse (triggers). Asthma triggers are different for each person. Common triggers include: ? Mold. ? Dust. ? Cigarette smoke. ? Cockroaches. ? Things that can cause allergy symptoms (allergens), such as animal dander or pollen from trees or grass. ? Air pollutants such as household steamtable attendant railroad, wood smoke, smog, or chemical odors. ? Cold air, weather changes, and winds (which increase molds and pollen in the air). ? Strong emotional expressions such as crying or laughing hard. ? Stress. ? Certain medicines (such as aspirin) or types of medicines (such as beta-blockers). ? Sulfites in foods and drinks. Foods and drinks that may contain sulfites include dried fruit, potato chips, and sparkling grape juice. ? Infections or inflammatory conditions such as the flu, a cold, or inflammation of the nasal membranes (rhinitis). ? Gastroesophageal reflux disease (GERD). ? Exercise or strenuous activity. What are the signs or symptoms? Symptoms of this condition may occur right after asthma is triggered or many hours later. Symptoms include: ? Wheezing. This can sound like whistling when you breathe. ? Excessive nighttime or early childhood education specialist coughing. ? Frequent or severe coughing with a common cold. ? Chest tightness. ? Shortness of breath. ? Tiredness (fatigue) with minimal activity. How is this diagnosed? This condition is diagnosed based on: ? Your medical history. ? A physical exam. ? Tests, which may include: ? Lung function studies and pulmonary studies (spirometry). These tests can evaluate the flow of air in your lungs. ? Allergy tests. ? Imaging tests, such as X-rays. How is this treated? There is no cure for this condition, but treatment can help control your symptoms. Treatment for asthma usually involves: ? Identifying and avoiding your asthma triggers. ? Using medicines to control your symptoms. Generally, two types of medicines are used to treat asthma: ? Controller medicines. These help prevent asthma symptoms from occurring. They are usually taken every day. ? Fast-acting reliever or rescue medicines. These quickly relieve asthma symptoms by widening the narrow and tight airways. They are used as needed and provide short-term relief. ? Using supplemental oxygen. This may be needed during a severe episode. ? Using other medicines, such as: ? Allergy medicines, such as antihistamines, if your asthma attacks are triggered by allergens. ? Immune medicines (immunomodulators). These are medicines that help control the immune system. ? Creating an asthma action plan. An asthma action plan is a written plan for managing and treating your asthma attacks. This plan includes: ? A list of your asthma triggers and how to avoid them. ? Information about when medicines should be taken and when their dosage should be changed. ? Instructions about using a device called a peak flow meter. A peak flow meter measures how well thelungs are working and the severity of your asthma. It helps you monitor your condition. Follow these instructions at home: Controlling your home environment Control your home environment in the following ways to help avoid triggers and prevent asthma attacks: ? Change your heating and air conditioning filter regularly. ? Limit your use of fireplaces and wood stoves. ? Get rid of pests (such as roaches and mice) and their droppings. ? Throw away plants if you see mold on them. ? Clean floors and dust surfaces regularly. Use unscented cleaning products. ? Try to have someone else vacuum for you regularly. Stay out of rooms while they are being vacuumed and for a short while afterward. If you vacuum, use a dust mask from a hardware store, a double-layered or microfilter vacuum cleaners bag, or a vacuum cleaners with a HEPA filter. ? Replace carpet with wood, tile, or vinyl annamaria. Carpet can trap dander and dust. ? Use allergy-proof pillows, mattress covers, and box spring covers. ? Keep your bedroom a trigger-free room. ? Avoid pets and keep windows closed when allergens are in the air. ? Wash beddings every week in hot water and dry them in a dryer. ? Use blankets that are made of polyester or cotton. ? Clean bathrooms and corrie with bleach. If possible, have someone repaint the servin in these rooms with mold-resistant paint. Stay out of the rooms that are being cleaned and painted. ? Wash your hands often with soap and water. If soap and water are not available, use hand senior mechanical development engineer. ? Do not allow anyone to smoke in your home. General instructions ? Take rslm-otg-sibhkto and prescription medicines only as told by your health care provider. ? Speak with your health care provider if you have questions about how or when to take the medicines. ? Make note if you are requiring more frequent dosages. ? Do not use any products that contain nicotine or tobacco, such as cigarettes and e-cigarettes. If you need help quitting, ask your health care provider. Also, avoid being exposed to secondhand smoke. ? Use a peak flow meter as told by your health care provider. Record and keep track of the readings. ? Understand and use the asthma action plan to help minimize, or stop an asthma attack, without needing to seek medical care. ? Make sure you stay up to date on your yearly vaccinations as told by your health care provider. This may include vaccines for the flu and pneumonia. ? Avoid outdoor activities when allergen counts are high and when air quality is low. ? Wear a ski mask that covers your nose and mouth during outdoor winter activities. Exercise indoors on cold days if you can. ? Warm up before exercising, and take time for a cool-down period after exercise. ? Keep all follow-up visits as told by your health care provider. This is important. Where to find more information ? For information about asthma, turn to the Centers for Disease Control and Prevention at www.cdc.gov/asthma/faqs ? For air quality information, turn to AirNow at airnow.gov Contact a health care provider if: ? You have wheezing, shortness of breath, or a cough even while you are taking medicine to prevent attacks. ? The mucus you cough up (sputum) is thicker than usual. ? Your sputum changes from clear or white to yellow, green, win, or bloody. ? Your medicines are causing side effects, such as a rash, itching, swelling, or trouble breathing. ? You need to use a reliever medicine more than 2???3 times a week. ? Your peak flow reading is still at 50???79% of your personal best after following your action plan for 1 hour. ? You have a fever. Get help right away if: ? You are getting worse and do not respond to treatment during an asthma attack. ? You are short of breath when at rest or when doing very little physical activity. ? You have difficulty eating, drinking, or talking. ? You have chest pain or tightness. ? You develop a fast heartbeat or palpitations. ? You have a bluish color to your lips or fingernails. ? You are light-headed or dizzy, or you faint. ? Your peak flow reading is less than 50% of your personal best. ? You feel too tired to breathe normally. Summary ? Asthma is a long-term (chronic) condition that causes recurrent episodes in which the airways become tight and narrow. These episodes can cause coughing, wheezing, shortness of breath, and chest pain. ? Asthma cannot be cured, but medicines and lifestyle changes can help control it and treat acute attacks. ? Make sure you understand how to avoid triggers and how and when to use your medicines. ? Asthma attacks can range from minor to life threatening. Get help right away if you have an asthma attack and do not respond to treatment with your usual rescue medicines. This information is not intended to replace advice given to you by your health care provider. Make sure you discuss any questions you have with your health care provider. Document Revised: 02/09/2021 Document Reviewed: 09/13/2020 Elsevier Patient Education ?? 2021 [employer] Tests Performed Lab Test Name Test Result Date/Time SARS-CoV-2 (COVID-19) RNA (ID Now) Not Detected 04/06/2022 12:50 EST Patient/Licensed Loan Officer Assistant Signature Patient Name:KENZIE TREY J I have received this information and my questions have been answered. Patient/Licensed Loan Officer Assistant Name: Patient/Licensed Loan Officer Assistant Signature: Relationship to Patient: Witness Name/Signature: Date: Electronically Signed on: 04/06/2022 14:08 ESTSigned by:LYDIA Patient Care team information Care Team Personnel Name: Jeanne Chan NP Position: No Access Member Role: Primary Care Physician Address: Address: [address] [address]- [place] Name: Hilary Wong MD Position: Physician Member Role: ED Physician Address: Address: [address] [place] [address]- [place] Name: Evelin Felix Position: Nurse Member Role: ED Nurse Care Team Related Persons Name: TERRI LOYD
--- OUTSIDE RECORDS SUMMARY | 2023-07-09 14:05 | XMS_ITS | Continuity of Care Document ---
Author Name Unknown Organization [facility] Address [address] [place] [address] Care Team Providers Care Manufacturing Systems Engineer Name Role Phone Jeanne Chan Primary Care Physician [phone] Encounter [facility] Date(s): 05/13/23 - 05/13/[address] [phone] Discharge Disposition: Home or Self Care Attending Physician: Teagan Kent MD Admitting Physician: Teagan Kent MD Referring Physician: Teagan Kent MD Allergies, Adverse Reactions, Alerts Substance Reaction Severity Status penicillins Itching Unknown Active Assessment and Plan Diagnostic Tests Pending * Protein Electrophoresis, S (SPEP) [facility] 05/13/23 Future Scheduled Tests Radiology* XR Hip 1 View w/ AP Pelvis Bilateral 10/01/22 Immunizations Given and Recorded Vaccine Date Status Refusal Reason SARS-CoV-2 (COVID-19) mRNA-1273 vaccine 08/18/20 R ecorded SARS-CoV-2 (COVID-19) mRNA-1273 vaccine 07/20/20 R ecorded influenza virus vaccine, inactivated 04/08/15 Cade rded pneumococcal 13-valent conjugate vaccine 06/26/14 Recorded Novel [id number], all formulation 05/31/09 Recorded zoster vaccine live [...] Condition Confirmation Course Effective Dates Status H ealt Status Informant Alzheimer disease Confirmed Active Atrial fibrillation Confirmed Active GERD (gastroesophageal reflux disease) Confirmed Active Valvular heart disease Confirmed Active Hip pain Confirmed Active Hyperlipidemia Confirmed Active DJD (degenerative joint disease) Confirmed Active Sleep apnea Confirmed Active Results Laboratory List Name Date Automated Diff 05/13/23 CBC w/ Diff 05/13/23 Comprehensive Metabolic Panel 05/13/23 TSH w/ Rflx to Free T4 05/13/23 Vitamin B12 Level 05/13/23 Most recent to oldest [Reference Range]: 1 WBC [5.0-10.0 x10^3/mcL] 7.2 x10^3/mcL (05/13/23 2:27 PM) RBC [4.1-5.3 x10^6/mcL] 4.5 x10^6/mcL (05/13/23 2:27 PM) Neutro Auto [40.0-75.0 %] 58.9 % (05/13/23 2:27 PM) Lymph Auto [20.0-50.0 %] 27.8 % (05/13/23 2:27 PM) [place] Auto [2.0-15.0 %] 7.9 % (05/13/23 2: PM) Basophil Auto [0.0-1.0 %] 1.1 % *HI* (05/13/23 2:27 PM) BUN [7-18 mg/dL] 15 mg/dL (05/13/23 2: PM) Glucose Level [74-106 mg/dL] 119 mg/dL *HI* (05/13/23 2: PM) Potassium Level [3.5-5.1 mmol/L] 3.3 mmo l/L *LOW* (05/13/23 2: PM) MCV [80.0-96.0 fL] 94.9 fL (05/13/23 2: PM) AST [15-37 unit/L] 26 unit/L (05/13/23 2: PM) ALT [14-59 unit/L] 23 unit/L (05/13/23 2: PM) MCHC [31.0-35.0 g/dL] 32.1 g/dL (05/13/23 2: PM) Sodium Level [136-145 mmol/L] 142 mmol/L (05/13/23 2: PM) Hct [37.0-47.0 %] 43.0 % (05/13/23 2: PM) Calcium Level [8.5-10.1 mg/dL] 9.1 mg/dL (05/13/23 2: PM) Albumin Level [3.4-5.0 g/dL] 3.2 g/dL *LOW* (05/13/23 2: PM) Protein Total [6.4-8.2 g/dL] 6.9 g/dL (05/13/23 2: PM) MCH [26.0-32.0 pg] 30.5 pg (05/13/23 2: PM) Neutro Absolute 4.3 x10^3/mcL *NA* (05/13/23 2:27 PM) Bilirubin Total [0.2-1.0 mg/dL] 0.6 mg/d L (05/13/23 2:27 PM) Hgb [12.0-16.0 g/dL] 13.8 g/dL (05/13/23 2:27 PM) B12 Level [193-986 pg/mL] 435 pg/mL (05/13/23 2:27 PM) Alk Phos [46-146 unit/L] 112 unit/L (05/13/23 2:27 PM) Platelets [130-450 x10^3/mcL] 349 x10^3/ mcL (05/13/23 2:27 PM) CO2 [21-32 mmol/L] 31 mmol/L (05/13/23 2:27 PM) TSH [0.358-3.740 mcIntlUnit/mL] 1.127 mc IntlUnit/mL (05/13/23 2:27 PM) eGFR Non-AA [>=60] 63 (05/13/23 2:27 PM) eGFR AA [>=60] 63 (05/13/23 2:27 PM) Chloride Level [98-107 mmol/L] 104 mmol/ L (05/13/23 2:27 PM) RDW-CV [11.5-14.5 %] 13.8 % (05/13/23 2:27 PM) Imm Gran Auto [0.0-0.9 %] 0.3 % (05/13/23 2:27 PM) Creatinine Level [0.55-1.02 mg/dL] 0.94 mg/dL (05/13/23 2:27 PM) Eos, Auto [1.0-6.0 %] 4.0 % (05/13/23 2:27 PM) Social History Social History Type Response Tobacco Former tobacco user Tobacco Use:. Sex Female Patient Care team information Care Team Personnel Name: Jeanne Chan WASHING MACHINE STRIPER Position: No Access Member Role: Informed Provider Address: Address: [address] [address]- Care Team Related Persons Name: TERRI LOYD Name: KIRILL WALSH Address: Home [address] [place], [place] [id number]
--- OUTSIDE RECORDS SUMMARY | 2023-07-09 14:05 | XMS_ITS | Continuity of Care Document ---
Author Name Unknown Organization [facility] Address [address] [place] [address] Care Team Providers Care Public Health Veterinarian Name Role Phone Jeanne Chan Primary Care Physician [phone] [facility] Date[facility] 04/27/23 - 04/28/[address] [address] Encounter Diagnosis Atrial fibrillation with RVR(Discharge Diagnosis) - 04/28/23 CHF exacerbation(Discharge Diagnosis) - 04/28/23 Attending Physician: Jovany Mckinnon MD Admitting Physician: Jovany Mckinnon MD Allergies, Adverse Reactions, Alerts Substance Reaction [...] pneumococcal 13-valent conjugate vaccine 06/26/14 Recorded Novel [id number], all formulation 05/31/09 Recorded zoster vaccine live [...] 0 Refill(s) Start Date: 01/31/22 Status: Ordered Mental Status 04/27/23 Eye Opening Response [employer] Spontaneous ly Best Verbal Response [employer] Confused Best Motor Response Adelina Obeys comman ds Adelina Coma Score 14 Problem List Condition Confirmation Course Effective Dates Status H ealth Status Informant Alzheimer disease Confirmed Active Atrial fibrillation Confirmed Active GERD (gastroesophageal reflux disease) Confirmed Active Valvular heart disease Confirmed Active Hip pain Confirmed Active Hyperlipidemia Confirmed Active DJD (degenerative joint disease) Confirmed Active Sleep apnea Confirmed Active Results Laboratory List Name Date Basic Metabolic Panel (BMP) 04/28/23 CBC w/o Diff 04/28/23 NT- Pro BNP 04/28/23 Most recent to oldest [Reference Range]: 1 WBC [5.0-10.0 x10^3/mcL] 9.1 x10^3/mcL (04/28/23 12:22 AM) RBC [4.1-5.3 x10^6/mcL] 4.1 x10^6/mcL (04/28/23 12:22 AM) BUN [7-18 mg/dL] 17 mg/dL (04/28/23 12:22 AM) Glucose Level [74-106 mg/dL] 131 mg/dL *HI* (04/28/23 12:22 AM) Potassium Level [3.5-5.1 mmol/L] 4.7 mmo l/L (04/28/23 12: AM) MCV [80.0-96.0 fL] 93.4 fL (04/28/23 12: AM) MCHC [31.0-35.0 g/dL] 32.8 g/dL (04/28/23: AM) Sodium Level [136-145 mmol/L] 139 mmol/L (04/28/23: AM) Hct [37.0-47.0 %] 38.4 % (04/28/23: AM) Calcium Level [8.5-10.1 mg/dL] 9.0 mg/dL (04/28/23: AM) MCH [26.0-32.0 pg] 30.7 pg (04/28/23: AM) Hgb [12.0-16.0 g/dL] 12.6 g/dL (04/28/23 12: AM) Platelets [130-450 x10^3/mcL] 325 x10^3/ mcL (04/28/23 12:22 AM) CO2 [21-32 mmol/L] 25 mmol/L (04/28/23 12: AM) eGFR Non-AA [>=60] 59 *LOW* (04/28/23 12: AM) eGFR AA [>=60] 59 *LOW* (04/28/23 12: AM) NT-proBNP [0-450 pg/mL] 815 pg/mL *HI* (04/28/23 12: AM) Chloride Level [98-107 mmol/L] 105 mmol/ L (04/28/23 12:22 AM) RDW-CV [11.5-14.5 %] 13.7 % (04/28/23 12: AM) Creatinine Level [0.55-1.02 mg/dL] 0.99 mg/dL (04/28/23 12:22 AM) Vital Signs Most recent to oldest [Reference Range]: 1 2 3 Temperature Temporal Artery [36-38 Deg C] 36.1 Deg C (04/27/23 11:38 PM) Peripheral Pulse Rate [60-100 bpm] 118 bpm *HI* (04/27/23 11:45 PM) Heart Rate Monitored [60-100 bpm] 114 bpm *HI* (04/28/23 12:45 AM) 139 bpm *HI* (04/28/23 12:30 AM) 126 bpm *HI* (04/28/23 12:15 AM) Respiratory Rate [12-24 br/min] 21 br/min (04/28/23 12:45 AM) 16 br/min (04/28/23 12:30 AM) 18 br/min (04/28/23 12:15 AM) Blood Pressure [90-140/60-90 mmHg] 130/80mmHg (04/28/23 12:45 AM) 137/116mmHg (04/28/23 12:30 AM) 134/75mmHg (04/28/23 12:15 AM) Mean Arterial Pressure, Cuff [70-110 mmHg] 97 mmHg (04/28/23 12:45 AM) 123 mmHg *>HHI* (04/28/23 12:30 AM) 95 mmHg (04/28/23 12:15 AM) Weight 96 kg (04/27/23 11:38 PM) Weight Dosing 96.000 kg (04/27/23 11:38 PM) Height 162.5 cm (04/27/23 11:38 PM) Body Mass Index 36.36 kg/m2 (04/27/23 11:38 PM) Social History Social History Type Response Tobacco Former tobacco user Tobacco Use:. Sex Female Physician Emergency department Note * Jovany Mckinnon MD: PERFORM Event Display: ED Note Physician Authored Date: [id number] TREY ESPINO :1945 Age:77 years Sex:Female Visit Date:04/27/2023 Primary Care Physician: Jeanne Chan NP HPI 77-year-old female with Alzheimer???s disease and atrial fibrillation on metoprolol succinate 25 mgdaily, furosemide 20 mg daily, and Xarelto presents for evaluation of slightly worsened bilateral lower extremity edema noted by her caregiver that has apparently been worsening over?the past fewdays?? ; patient is without any complaints. ?? M/S/F/SocHx notable for: please see HPI; remainder reviewed with patient and in chart.? ROS: Negative constitutional, eye, cardiovascular, pulmonary, GI, , MSK, skin, neurologic, psychiatric, endocrine unless noted in the HPI. ?? Exam HR 120, RR 19, BP 143/110, T 36.1??C, SaO2 96% on room air.?? Gen:??Pleasant, non-toxic appearing, resting comfortably. HEENT: NC, AT, PEERL, EOMI. Resp: Clear to auscultation bilaterally, normal work of breathing, no accessory muscle usage. Card: Irregularly irregular rate with no murmurs, rubs, or gallops, extremities warm and well perfused. One plus pitting edema through the mid-calves bilaterally. GI: Non-tender to palpation throughout all quadrants, non-distended, no rebound or guarding. : No suprapubic tenderness to palpation.?? MSK: No visible deformities, strength and tone without visually appreciable deficit. Skin: Normal color with no visible lesions. Neuro: alert and oriented to self, no facial asymmetry, vision and hearing WNL. Psych: Mood and affect appropriate. ?? Labs WBC 9.1, Hb 12.6, Na 139, K 4.7, NT proBNP 815. Imaging EKG (11:58 PM): AFib with a ventricular rate of 115 bpm, no new ST segment changes, new LBBB, or T-wave changes that would suggest acute ischemia.? CXR: No acute cardiopulmonary disease process. Radiologist???s read pending. ?? MDM Previous chart, nursing note, labs, imaging, and vitals reviewed.?? A:??77-year-old female with Alzheimer???s disease and atrial fibrillation on metoprolol succinate 25 mg daily, furosemide 20 mg daily, and Xarelto presents for evaluation of slightly worsened bilateral lower extremity edema noted by her caregiver that has apparently been worsening over?the pastfew days?? ; patient is without any complaints. ?? DDx & Evaluation:??patient with atrial fibrillation and slightly higher than desired ventricular rate (105-130) at rest, patient is given 25 mg PO metoprolol tartrate and screening studies were obtained (CBC, BMP, BNP, CXR). Initial interpretation of the chest x-ray is without evidence of edema(or other acute pathology), ECG demonstrates A. fib without evidence of further abnormalities, and the patient???s BMP and CBC are within acceptable limits, the NT proBNP is elevated, however the baseline is unclear. The patient was recommended to increase their metoprolol to 50 mg qd and follow upwith her PCP with respect to their chronic health no features on the above evaluation suggestive ofDVT. Conditions. A single dose of 20 mg PO Lasix was given in the emergency department. ?? Impression: atrial fibrillation, CHF. Electronically Signed on 04/28/23 01:12 AM Jovany Mckinnon MD Emergency department Discharge instructions * Jovany Mckinnon MD: PERFORM Event Display: ED Discharge Information Authored Date: [id number] TREY ESPINO :1945 Age:77 years Sex:Female Visit Date:04/27/2023 Primary Care Physician: Jeanne Chan SHIP BOSS Discharge Instructions We would like to thank you for allowing us to assist you with your healthcare needs. The following includes patient education materials and information regarding your injury/illness. ?? You were seen at [facility] Emergency Department for evaluation of??leg swelling. You were??found to have mild edema of your lower extremities??and you were given a dose of Lasix in the emergency department. You were found to have a faster than desired heart rate with respect to your atrial fibrillation and were also given an additional dose and metoprolol. Please increase your metoprolol to 50 mg daily and follow up with your primary care physician within 1-2 days.??Please read andfollow all of the instructions below. ?? When calling for follow-up care, please make the office aware that this follow- up is from your recent emergency room visit.? Your care today was limited to identifying and treating emergent medical problems only. Many peoplehave subtle differences in their test results that require follow up with their outpatient physician(s) to correctly determine if this represents a normal variation or concerning abnormality with respect to your specific health.??The care given to you today was limited to identifying and treating emergent medical problems - you need to request a copy of all of your medical records from today's visit and follow up with your outpatient physician(s) to review both today's visit and your overall health. If you have any new symptoms or if you are at all concerned about your health please return immediately to the emergency department. ?? Prescriptions: If you are uninsured or have financial difficulties with filling your prescription(s), you may consider using a free pharmacy discount service such as [employer] ([employer]) or [employer] ([employer]). These services allow you to search for a medication on your phone (or computer) and obtain a coupon that usually has a significant discount from the list harper at a pharmacy. Your physician does not have a financial relationship with either of these services. You may also wish to speak with your physician to determine if lower cost prescriptions are possible. ?? Diagnosis from Today's Visit Atrial fibrillation with RVR CHF exacerbation Discharge Vitals Temperature??(Temporal Artery) 97.0 ??F (36.1 ??C) Heart Rate??(Monitored) 114 Respiratory Rate?? 21 Blood Pressure?? 130/80?? Height?? 63.98 in (162.5 cm) Weight?? 211.68 lb (96 kg) BMI?? 36.36 Allergies penicillins??(Itching) You were treated today on an emergency [...] (given by mouth) Every evening Tests Performed Medications and Immunizations Administered Given metoprolol tartrate, 25 mg, Oral Lab Test Name Test Result Date/Time WBC 9.1 x10^3/mcL 04/28/2023 00:22 EST RBC 4.1 x10^6/mcL 04/28/2023 00:22 EST Hgb 12.6 g/dL 04/28/2023 00:22 EST Hct 38.4 % 04/28/2023 00:22 EST MCV 93.4 fL 04/28/2023 00:22 EST MCH 30.7 pg 04/28/2023 00:22 EST MCHC 32.8 g/dL 04/28/2023 00:22 EST RDW-CV 13.7 % 04/28/2023 00:22 EST Platelets 325 x10^3/mcL 04/28/2023 00:22 EST Sodium Level 139 mmol/L 04/28/2023 00:22 EST Potassium Level 4.7 mmol/L 04/28/2023 00:22 EST Chloride Level 105 mmol/L 04/28/2023 00:22 EST CO2 25 mmol/L 04/28/2023 00:22 EST BUN 17 mg/dL 04/28/2023 00:22 EST Glucose Level 131 mg/dL 04/28/2023 00:22 EST Creatinine Level 0.99 mg/dL 04/28/2023 00:22 EST eGFR AA 59 04/28/2023 00:22 EST eGFR Non-AA 59 04/28/2023 00:22 EST Calcium Level 9.0 mg/dL 04/28/2023 00:22 EST NT-proBNP 815 pg/mL 04/28/2023 00:22 EST Patient/Well Service Floor Worker Signature Patient Name:ESPINOTREY I have received this information and my questions have been answered. Patient/Well Service Floor Worker Name: Patient/Well Service Floor Worker Signature: Relationship to Patient: Witness Name/Signature: Date: Electronically Signed on: 04/28/2023 01:13 ESTSigned by:RIAN Emergency department Note * Kirstie Montaño M: PERFORM Event Display: ED Notes Authored Date: [id number] Patient Care team information Care Team Personnel Name: Jeanne Chan SHIP BOSS Position: No Access Member Role: Informed Provider Address: Address: [address] [address] Name: Jovany Mckinnon MD Position: Physician Member Role: ED Physician Name: Ayan Bullock RN Position: Nurse Member Role: ED Nurse Care Team Related Persons Name: TERRI LOYD Name: KIRILL WALSH Address: [address] [id number]
== END ==
PROVIDERS: PCP Nurse Practitioner Family; Visit Provider Family Medicine
DX: M79.605 Pain in left leg (principal); M25.472 Effusion, left ankle
CPT/HCPCS: 73590; 73610